=== PATIENT | female | born 1965 | race Caucasian/White ===

== ENCOUNTER → 2017-05-08 | Outpatient (CLI) | payer BC ==
[~2017-05-08] MED LIST: ASCO500T3 PO; CHOL1000 PO; MAGNESIUM PO; MULT-845 PO; TUMERIC PO; TYLOTC500 PO
[2017-05-08 12:39] LABS: HEMATOCRIT 41.3 % (37-47); MEAN CELL VOLUME 95.8 fL (80-100); MEAN CORPUSCULAR HEMOGLOBIN 32.3 pg (25-34); MEAN CORPUSCULAR HGB CONC 33.7 g/dl (32-36); MEAN PLATELET VOLUME 11.2 fL (7.4-10.4); PLATELET COUNT 318 K/uL (130-400); RED BLOOD COUNT 4.31 M/uL (4.2-5.4); WHITE BLOOD COUNT 4.09 K/uL (4.8-10.8)
[2017-05-08 12:47] LABS: URINE APPEARANCE CLOUDY (CLEAR); URINE BILIRUBIN NEG (NEG); URINE COLOR YELLOW; URINE EPITHELIAL CELL AUTO >30 /lpf (0-5); URINE NITRITE NEG (NEG); UROBILINOGEN NEG (NEG); ZZUR CULT IF INDIC CLEAN CATCH YES
[2017-05-08 12:48] LABS: MANUAL MICROSCOPIC REQUIRED? NO; REVIEW REQ? NO
[2017-05-08 12:50] LABS: ALT/SGPT 61 U/L (12-78); AST/SGOT 35 U/L (15-37); BLOOD UREA NITROGEN 17 mg/dl (7-18); BUN/CREATININE RATIO 18.1 (10-20); CALCIUM 9.8 mg/dl (8.5-10.1); CARBON DIOXIDE 27 mmol/L (21-32); CHLORIDE 106 mmol/L (98-107); CREATININE 0.94 mg/dl (0.60-1.20); GLUCOSE 121 mg/dl (70-99); POTASSIUM 4.2 mmol/L (3.5-5.1); SODIUM 139 mmol/L (136-145); TRIGLYCERIDES 113 mg/dl (0-150); VERY LOW DENSITY LIPOPROT CALC 23 mg/dl
[2017-05-08 12:53] LABS: ALKALINE PHOSPHATASE 60 U/L (45-117); CHOLESTEROL 219 mg/dl (0-200); CHOLESTEROL/HDL RATIO 3.4; HDL CHOLESTEROL 65 mg/dl; LDL CHOLESTEROL CALCULATED 131 mg/dl
== END | disposition home or self-care (01) ==
LOC: C.LABBFT 08:37
PROVIDERS: ATTEND Nurse Practitioner
DX: R31.29 Other microscopic hematuria (principal); Z11.59 Encounter for screening for other viral diseases; Z13.220 Encounter for screening for lipoid disorders; R73.01 Impaired fasting glucose

== ENCOUNTER → 2017-05-09 | Outpatient (CLI) | payer BC | END | disposition home or self-care (01) | LOC: C.LABBFT 08:18 | PROVIDERS: ATTEND Nurse Practitioner | DX: Z11.59 Encounter for screening for other viral diseases (principal); R31.29 Other microscopic hematuria; R73.01 Impaired fasting glucose; Z13.220 Encounter for screening for lipoid disorders; N30.20 Other chronic cystitis without hematuria ==

== ENCOUNTER → 2017-07-23 | Outpatient (CLI) | payer BC ==
--- NOTE | 2017-07-24 07:56 | MAMMOGRAPHY REPORT ---
BILATERAL DIGITAL SCREENING MAMMOGRAM TOMOSYNTHESIS WITH CAD: 07/23/2017 CLINICAL HISTORY: Routine screening. Patient has no complaints. TECHNIQUE: Breast tomosynthesis in addition to standard 2D mammography was performed. Current study was also evaluated with a Computer Aided Detection (CAD) system. COMPARISON: Comparison is made to exams dated: 07/17/2016 mammogram, 07/12/2015 mammogram, 06/10/2013 m ammogram - [facility], 06/06/2009, and 12/08/2009 mammogram - [facility] enter. BREAST COMPOSITION: There are scattered areas of fibroglandular density in both breasts. FINDINGS: No new suspicious mass, architectural distortion or cluster of microcalcifications is seen . IMPRESSION: ACR BI-RADS CATEGORY 1: NEGATIVE There is no mammographic evidence of malignancy. A 1 year screening mammogram is recommended. The pa tient will receive written notification of the results. Approximately 10% of breast cancers are not detected with mammography. A negative mammographic report should not delay biopsy if a clinically suggestive mass is present. Aracelis Elkins M.D. ay/:07/23/2017 21:45:57 Quarter Section Ironer: Guera CHAVEZ(R)(M), [facility] letter sent: Normal 1/2 BI-RADS Code: ACR BI-RADS Category 1: Negative
== END | disposition home or self-care (01) ==
LOC: C.MAMM 08:17
PROVIDERS: ATTEND Obstetrics & Gynecology
DX: Z12.31 Encounter for screening mammogram for malignant neoplasm of breast (principal)

== ENCOUNTER → 2018-03-19 | Outpatient (CLI) | payer BC ==
--- NOTE | 2018-03-19 09:19 | DIAGNOSTIC IMAGING REPORT ---
ABDOMEN FOR HERNIA HISTORY: 53 years-old Female K42.9 Umbilical hernia without obstruction and without gangreneP periumbilical hernia, chronic now with acute pain COMPARISON: None available TECHNIQUE: Multiple real-time sonographic images of the periumbilical soft tissues were obtained assessing grayscale appearance and color flow FINDINGS: Fat filled periumbilical hernia is noted measuring 11.1 x 7.1 cm. The fat within the hernia appears mildly echogenic and is nonreducible. Promotional Advertising Assistant reports patient pain and tenderness within this distribution. Nondilated loops of bowel are also seen extending into the hernia sac. IMPRESSION: Nonreducible periumbilical hernia contains mesenteric fat and nondilated loops of bowel. The above report was generated using voice recognition software. It may contain grammatical, syntax or spelling errors. Electronically signed by: Timmy Hampton M.D. 03/19/2018 9:18 AM Dictated Date/Time: 03/19/2018 9:14 AM
== END | disposition home or self-care (01) ==
LOC: C.ULTR 08:27
PROVIDERS: ATTEND Nurse Practitioner
DX: K42.9 Umbilical hernia without obstruction or gangrene (principal)

== ENCOUNTER 2018-06-05 08:27 | Emergency (ER) | payer BC ==
[~2018-06-05] VITALS: Ht 157.5 cm; Wt 109.1 kg
[~2018-06-05 08:27] MED LIST changes: +CPR500 PEG; +CRAN1CAP PO; +GLUCTAB18 PO; +LORATAB PO; -MAGNESIUM PO; +METF500T5 PO; +METR-163 PO; -MULT-845 PO; -TUMERIC PO
[2018-06-05 08:29] VITALS: TEMP 36.7; Ht 157.5 cm; Wt 109.1 kg
[2018-06-05] MEDS ORDERED: ASCO10003 PO (09:20)
--- NOTE | 2018-06-05 09:54 | DIAGNOSTIC IMAGING REPORT ---
R KNEE 3 VIEWS CLINICAL HISTORY: 53 years-old Female presenting with R knee pain. TECHNIQUE: Frontal, crosstable lateral, and sunrise views of the right knee were obtained. COMPARISON: None. FINDINGS: Knee joint congruent though there is severe medial joint space loss with a [id number] appearance. Subchondral sclerosis and cystic change suspected in the medial femoral condyle. Exuberant tricompartmental osteophytosis. No acute fracture or malalignment. Moderate knee joint effusion. No patellar subluxation. IMPRESSION: 1. Advanced tricompartmental degenerative changes most severe in the medial compartment with [id number] medial compartment joint space loss. 2. Moderate knee joint effusion. Electronically signed by: Ajit Leigh M.D. 06/05/2018 9:53 AM Dictated Date/Time: 06/05/2018 9:52 AM
[2018-06-05 10:14] VITALS: BP 148/97; PULSE 105; O2SAT 93
[2018-06-05] MEDS ORDERED: KETO10TA PO (10:22)
--- NOTE | 2018-06-05 15:38 | EMERGENCY ROOM VISIT NOTE ---
ED Visit Note First contact with patient: 08:45 Chief Complaint: Right knee pain. History of Present Illness: Ms. Victoria is a 53-year-old white female who ambulates into the ED complaining of diffuse right knee pain with prominence over the medial aspect of the knee. Patient reports there was no precipitating trauma and on Saturday afternoon, 2 days ago, she was getting up from the sitting position and started having increasing pain. Since that time her pain has been constant and gradually increasing in intensity. She describes her pain as a sharp sensation. She rates her discomfort 6/10. Her pain is nonradiating. Her pain worsens with flexion and extension of the knee, ambulation and positional changes. She reports she is pain-free when she is lying supine and still. She has not taken any medications for pain prior to arrival at the hospital. She denies any associated fevers, chills, sweats, skin redness, recent direct or repetitive trauma, previous significant injuries or surgeries, back pain, hip pain, ankle pain, foot pain, leg weakness/numbness/tingling, cramping, claudication, previous clots. Review of Systems: As noted above in history of present illness. 8 body systems were reviewed and found to be negative as noted above. Past Medical History: Type 2 diabetes, pyelonephritis, status post unspecified hernia surgery. Current Medications: Medications Dose Route/Sig Max Daily Dose Days Date Category Dose Instructions Vitamin C (Ascorbic Acid) 1,000 Mg Tab 1,000 Mg PO DAILY 06/05/18 Reported Cranberry Concentrate Tri 31577-617 mg (Cranberry-Vitamin C) 1 Cap Cap 2 Cap PO BID 05/18/18 Reported Glucophage Er (Metformin HCl) 500 Mg Tab 1,000 Mg PO DAILY 05/18/18 Reported TWO 500 MG TABLETS DAILY Tylenol (Acetaminophen) 500 Mg Tab 1 Dose PO UD PRN 05/18/18 Reported Osteo Bi-Flex Regular Str (Glucosamine-Chondroitin) 1 Tab Tab 1 Tab PO QAM 04/08/18 Reported Vitamin D3 (Cholecalciferol) 1,000 Unit Tab 1 Tab PO QAM 90 12/19/15 Reported Allergies to Medications: Penicillin. Social History: Patient is currently employed; she feels safe in her home environment; she denies current tobacco use and alcohol use per Physical Examination: Vital Signs: Date Time Temp Pulse Resp B/P (MAP) Pulse Ox O2 Delivery O2 Flow Rate FiO2 06/05/18 10:14 105 16 148/97 93 Room Air 06/05/18 08:29 36.7 119 20 145/90 96 Room Air GENERAL: 53-year-old female in mild distress due to pain, nontoxic-appearing, afebrile and hemodynamically stable. NEUROLOGICAL: Awake, alert and oriented to person, place and time. Answering questions appropriately and following commands. Good hand eye coordination. No focal motor or sensory deficits. SKIN: Warm, dry and pink. No soft tissue eruptions or trauma noted. RIGHT LOWER EXTREMITY: No gross bony deformity. No shortening or malrotation. No tenderness in the hip, thigh,, lower leg, ankle or foot. Moderate tenderness over the medial joint line. Moderate swelling over the anterior knee without erythema, warmth or appearance of cellulitis. Because of her body habitus and the size it is tough to examine her knee but I do not appreciate any ligamentous laxity of the collateral or cruciate ligaments. I was not able to assess the meniscus. Because of her moderate swelling her patellar apprehension testing and ballottement testing is questionable. There is no tenderness over the quadriceps tendon. No tenderness, bulging, swelling in the posterior knee. Over the lower legs skin was warm and pink and capillary refill was brisk. No palpable cords. Distal pulses and sensation was intact and equal bilaterally. ED Course: Patient is assessed as noted above. Patient's medication list was reviewed. Patient was offered pain medication and refused. Right Knee X-Rays: Was read by myself and the radiologist showing advanced tricompartmental degenerative changes most severe over the medial compartment with [id number] and joint space loss. Moderate joint effusion. Patient was placed in a Chaparro bandage and educated on walker ambulation. Patient was educated about today's findings and instructed on her treatment plan ; she verbalized understanding and agreement with this plan. Clinical Impression: Right knee pain. Advanced tricompartmental degenerative changes. Moderate joint effusion. Decision-Making: Initially my differential diagnosis I considered degenerative changes, joint effusion, ligamentous strain, muscle strain, tendinitis, and other causes. Disposition: Patient discharged home in stable condition accompanied by her sister and mother; prior to departure she was reassessed and subjectively reported she was having worsening pain and rated her discomfort 8/10. Plan: Comfort measures including rest, ice, Chaparro, walker use and a prescription for Toradol were discussed with the patient. Patient was signed off of work for 3 days. Patient was encouraged to follow-up with orthopedics for definitive care and treatment. Patient was encouraged return the ED for worsening/uncontrolled pain, uncontrolled swelling, leg weakness/numbness/tingling or any new/concerning symptoms.
== END 2018-06-05 10:35 | disposition home or self-care (01) ==
LOC: C.EDB 08:28 → C.EDA 10:35
DX: M25.561 Pain in right knee (principal); E11.9 Type 2 diabetes mellitus without complications; Z79.84 Long term (current) use of oral hypoglycemic drugs; Z88.0 Allergy status to penicillin

== ENCOUNTER 2020-10-12 13:02 | Inpatient (IN) ==
--- NOTE | 2020-10-12 13:37 | Emergency Department Note ---
History of Present Illness General Chief Complaint: Shortness of Breath/Dyspnea Stated Complaint: SOB, LOW OXYGEN LEVELS Time Seen by Provider: 10/12/20 13:13 Source: patient Mode of arrival: ambulatory Limitations: no limitations History of Present Illness Provider Complaint: shortness of breath Onset (ago): day(s) (4) Severity: similar to previous episodes Consistency/Duration: + constant Maximum Pain Intensity: 5 Current Pain Intensity: 5 Relieved By: + nothing Exacerbated By: + exertion, + movement and + coughing Context: + recent illness Associated symptoms: + fever and + cough Treatment prior to arrival: other (Acetaminophen) HPI Narrative: This 55-year-old female patient presents to the emergency department today for evaluation of shortness of breath and hypoxia. Patient reports fever, cough, headache, and body aches since Saturday. She states she developed worsening shortness of breath this morning, prompting her to go to [facility] [employer] for evaluation of her symptoms. The patient states the fever seemed to resolve by Saturday. She has been taking acetaminophen for her body aches with some improvement. Urgent care referred her to the emergency department due to hypoxia. She did have a negative rapid Covid test completed at that time, but had O2 saturation of 90% on room air at that time. Patient denies any cough or hemoptysis. She denies any severe shortness of breath. Related Data Home oxygen amount: none Home Medications Medication Instructions Recorded Confirmed Type lisinopril 5 mg tablet 5 mg PO DAILY #90 tab 12/07/19 10/12/20 Rx atorvastatin 10 mg tablet 10 mg PO DAILY #90 tab 04/07/20 10/12/20 Rx metformin 500 mg tablet,extended 500 mg PO BID #60 tab 05/03/20 10/12/20 Rx release 24hr blood sugar diagnostic #200 ea 06/02/20 Rx aspirin [Aspirin Low Dose] 81 mg PO DAILY 10/12/20 10/12/20 History Allergies Allergy/AdvReac Type Severity Reaction Status Date / Time Penicillins Allergy Unknown RASH Verified 04/07/20 14:33 Past Med/Surg History Medical History Abdominal abscess Pyelonephritis Seroma after procedure Surgical History (Updated 02/18/20 @ 15:20 by Elaine Peterson) History of History of tubal ligation History of ventral hernia repair Hx of colonoscopy Family History (Updated 02/18/20 @ 15:21 by Elaine Peterson) Grandmother (Maternal) Diabetes Father Cancer Denies family history of Ovarian cancer Prostate cancer Myocardial infarction Breast cancer Colorectal cancer Social History Smoking Status: Former smoker Tobacco Type: Cigarettes Hx Alcohol Use: No Hx Substance Use: No marital status: Current Living Situation: Spouse current occupational status: employed Feels Safe at Home: Yes Review of Systems A total of 10 systems reviewed and were otherwise negative Physical Exam Vital Signs: Vital Signs - 24 hr 10/12/20 13:09 10/12/20 13:59 10/12/20 14:00 Temperature 37.0 C Temperature Source Skin Pulse Rate 92 H Pulse Rate [Right Finger] Pulse Rate from Sp O2 Sensor 87 90 Pulse Rhythm Respiratory Rate 20 Respiratory Effort / Characteristics Respiratory Depth Normal Respiratory Patter n Blood Pressure 130/83 Blood Pressure [Ri ght Arm] Blood Pressure Sofya n 98 Blood Pressure Sofya n [Right Arm] Pulse Oximetry 91 94 94 Oxygen Delivery Me thod Room Air Oxygen Flow Rate 2 2 Sepsis Recent Feve r Within 48 Hours No Sepsis New/Unexpla ined Change in Men shelea Status N/A Sepsis Action Take n by Nursing No Action Required Oxygen Flow Rate - Titration Pulse Oximetry Pos t Tiitration 10/12/20 14:15 10/12/20 14:25 10/12/20 14:30 Temperature Temperature Source Pulse Rate Pulse Rate [Right Finger] Pulse Rate from Sp O2 Sensor 88 90 Pulse Rhythm Regular Respiratory Rate Respiratory Effort / Characteristics Non-Labored SOB on Exertion Respiratory Depth Normal Respiratory Patter n Regular Blood Pressure Blood Pressure [Ri ght Arm] Blood Pressure Sofya n Blood Pressure Sofya n [Right Arm] Pulse Oximetry 93 87 L 91 Oxygen Delivery Me thod Room Air Room Air Oxygen Flow Rate 2 2 Sepsis Recent Feve r Within 48 Hours Sepsis New/Unexpla ined Change in Men sheela Status Sepsis Action Take n by Nursing Oxygen Flow Rate - Titration 3 Pulse Oximetry Pos t Tiitration 95 10/12/20 14:45 10/12/20 15:00 10/12/20 15:50 Temperature Temperature Source Pulse Rate Pulse Rate [Right Finger] 83 Pulse Rate from Sp O2 Sensor 84 87 Pulse Rhythm Respiratory Rate 19 Respiratory Effort / Characteristics Respiratory Depth Respiratory Patter n Blood Pressure Blood Pressure [Ri ght Arm] 146/79 H Blood Pressure Sofya n Blood Pressure Sofya n [Right Arm] 101 Pulse Oximetry 92 93 96 Oxygen Delivery Me thod Room Air Oxygen Flow Rate 2 2 Sepsis Recent Feve r Within 48 Hours Sepsis New/Unexpla ined Change in Men sheela Status Sepsis Action Take n by Nursing Oxygen Flow Rate - Titration Pulse Oximetry Pos t Tiitration Physical Exam: VITALS: Blood Pressure 130/83, P 92, R 20, T 37.0C, O2 sat 89% on RA GENERAL: Well appearing, in no acute distress. Non-diaphoretic, well-developed, well-nourished. SKIN: No rashes, erythema, edema, or bruising. Good cap refill. HEAD: Normocephalic atraumatic. EYES: Conjunctivae without injection, sclerae without icterus. NECK: Supple without nuchal rigidity. No lymphadenopathy. LUNGS: Pt. able to speak in full sentences without difficulty. No apparent distress. No retractions or accessory muscle use. MUSCULOSKELETAL: Full range of motion without joint tenderness in all extremities. Normal gait. NEURO: Patient was alert and oriented to person place and time. No focal neurological deficits. Course Course The patient was seen and evaluated as above. Pt. placed on 2 L O2 via NC. An order was placed for continuous cardiac monitoring. The monitor shows a normal sinus rhythm at a rate of 92 bpm. IV access obtained, labs drawn. Pt. medicated with IV fluids. Imaging performed and reviewed by myself and radiologist as noted. Labs reviewed by myself. I discussed the case with [facility] Hospitalist service. They did agree to see and evaluate the patient for admission. Administered Medications Discontinued Medications Dexamethasone (Dexamethasone Sod Inj 10 Mg/Ml Vial) 6 mg IV NOW ONE Stop: 10/12/20 14:40 Last Admin: 10/12/20 15:49 Dose: 6 mg Documented by: [id number] Sodium Chloride (Nss 1000ml) 1,000 mls @ 999 mls/hr IV .Q1H1M ONE Stop: 10/12/20 14:55 Last Infusion: 10/12/20 15:33 Dose: 0 mls/hr Documented by: [id number] Admin: 10/12/20 14:37 Dose: 999 mls/hr Documented by: [id number] Medical Decision Making Differential Diagnosis + acute exacerbation of chronic obstructive airways disease, + community acquired pneumonia, + asthma with exacerbation, + pulmonary embolism, + COPD, + bronchitis, + pneumothorax, + pneumonia, + pleural effusion, + CHF, + ACS and + aspiration In addition to the above, Covid-19 was considered. Medical Records Attestation: I reviewed the patient's medical records. Home Medications Current Medication List: was personally reviewed by me Laboratory Data Attestation: I reviewed the patient's lab results. No leukocytosis, thrombocytopenia. WBC 3.27. There is a mild anemia with a hemoglobin of 11.3 and hematocrit of 33.6. Renal, hepatic function, and electrolytes without significant abnormality. Troponin negative. BNP 438. COVID-19 testing positive. Result diagrams: 10/12/20 14:17 10/12/20 14:17 Lab Results 10/12/20 10/12/20 10/12/20 Range/Units 14:17 14:17 14:17 WBC 3.27 L (4.8-10.8) K/uL RBC 3.56 L (4.2-5.4) M/uL Hgb 11.3 L (12.0-16.0) g/dL Hct 33.6 L (37-47) % MCV 94.4 (80-100) fL MCH 31.7 (25-34) pg MCHC 33.6 (32-36) g/dL RDW Std Deviation 43.6 (36.4-46.3) fL RDW Coeff of Ramone 12.6 (11.5-14.5) % Plt Count 235 (130-400) K/uL MPV 10.1 (7.4-10.4) fL Immature Gran % (Auto) 0.3 % Neut % (Auto) 70.0 % Lymph % (Auto) 20.2 % [place] % (Auto) 9.2 % Eos % (Auto) 0.0 % Baso % (Auto) 0.3 % Neut # (Auto) 2.29 (1.4-6.5) K/uL Lymph # (Auto) 0.66 L (1.2-3.4) K/uL [place] # (Auto) 0.30 (0.11-0.59) K/uL Eos # (Auto) 0.00 (0-0.5) K/uL Baso # (Auto) 0.01 (0-0.2) K/uL Immature Gran # (Auto) 0.01 (0.00-0.02) K/uL PT 10.7 (9.0-12.0) Seconds INR 1.0 (0.9-1.1) APTT 31.4 H (21.0-31.0) Seconds PTT Ratio 1.1 Sodium 133 L (136-145) mmol/L Potassium 4.1 (3.5-5.1) mmol/L Chloride 99 (98-107) mmol/L Carbon Dioxide 29 (21-32) mmol/L Anion Gap 5.0 (3-11) BUN 10 (7-18) mg/dl Creatinine 0.83 (0.6-1.2) mg/dl Est Cr Clr Drug Dosing 85.6 ml/min Est GFR ( Amer) 90.7 Est GFR (Non-Af Amer) 78.3 BUN/Creatinine Ratio 11.5 (10-20) Glucose 101 H (70-99) mg/dl Calcium 8.6 (8.5-10.1) mg/dl Magnesium 2.1 (1.8-2.4) mg/dl Total Bilirubin 0.4 (0.2-1) mg/dl AST 29 (15-37) U/L ALT 28 (12-78) U/L Alkaline Phosphatase 52 (45-117) U/L Troponin I < 0.015 (0-0.045) ng/ml NT-Pro-B Natriuret Pep 438 (0-900) pg/ml Total Protein 7.8 (6.4-8.2) gm/dl Albumin 3.3 L (3.4-5.0) gm/dl Globulin 4.5 H (2.5-4.0) gm/dl Albumin/Globulin Ratio 0.7 L (0.9-2) COVID-19 Eval Order SARS-CoV-2, RNA, NAAT (NEGATIVE) 10/12/20 10/12/20 Range/Units 14:30 14:30 WBC (4.8-10.8) K/uL RBC (4.2-5.4) M/uL Hgb (12.0-16.0) g/dL Hct (37-47) % MCV (80-100) fL MCH (25-34) pg MCHC (32-36) g/dL RDW Std Deviation (36.4-46.3) fL RDW Coeff of Ramone (11.5-14.5) % Plt Count (130-400) K/uL MPV (7.4-10.4) fL Immature Gran % (Auto) % Neut % (Auto) % Lymph % (Auto) % [place] % (Auto) % Eos % (Auto) % Baso % (Auto) % Neut # (Auto) (1.4-6.5) K/uL Lymph # (Auto) (1.2-3.4) K/uL [place] # (Auto) (0.11-0.59) K/uL Eos # (Auto) (0-0.5) K/uL Baso # (Auto) (0-0.2) K/uL Immature Gran # (Auto) (0.00-0.02) K/uL PT (9.0-12.0) Seconds INR (0.9-1.1) APTT (21.0-31.0) Seconds PTT Ratio Sodium (136-145) mmol/L Potassium (3.5-5.1) mmol/L Chloride (98-107) mmol/L Carbon Dioxide (21-32) mmol/L Anion Gap (3-11) BUN (7-18) mg/dl Creatinine (0.6-1.2) mg/dl Est Cr Clr Drug Dosing ml/min Est GFR ( Amer) Est GFR (Non-Af Amer) BUN/Creatinine Ratio (10-20) Glucose (70-99) mg/dl Calcium (8.5-10.1) mg/dl Magnesium (1.8-2.4) mg/dl Total Bilirubin (0.2-1) mg/dl AST (15-37) U/L ALT (12-78) U/L Alkaline Phosphatase (45-117) U/L Troponin I (0-0.045) ng/ml NT-Pro-B Natriuret Pep (0-900) pg/ml Total Protein (6.4-8.2) gm/dl Albumin (3.4-5.0) gm/dl Globulin (2.5-4.0) gm/dl Albumin/Globulin Ratio (0.9-2) COVID-19 Eval Order Covid19 IDNow [facility] SARS-CoV-2, RNA, NAAT POSITIVE A* (NEGATIVE) Imaging Data My Impression: SINGLE VIEW CHEST CLINICAL HISTORY: Dyspnea. FINDINGS: An AP, portable, upright chest radiograph is compared to study dated 05/18/2018. The cardiomediastinal silhouette is unremarkable. Patchy airspace consolidation is seen in the mid to lower lung bilaterally. No large pleural effusion or pneumothorax is identified. The skeletal structures are osteopenic. The bony thorax is grossly intact. IMPRESSION: Multifocal patchy airspace consolidation is typical for pneumonia. Clinical correlation will be required and radiographic follow-up to resolution is recommended. ACT 112: Negative or not required by law. Electronically signed by: Daren Marroquin M.D. 10/12/2020 2:20 PM ECG Data Attestation: I personally reviewed and interpreted this ECG as follows: Interpretation: Normal sinus rhythm with a ventricular rate of [address] elevation or depression. No T-wave inversion. Normal axis. Blood Pressure Blood Pressure Findings: Elevated blood pressure Blood Pressure Disposition: elevated BP felt to be situational MDM Narrative This 55-year-old female patient presents to the emergency department today for fever, cough, shortness of breath, headache, and body aches. Given her symptoms, I was highly suspicious for COVID-19 as the etiology. The patient is afebrile while here in the department, but is hypoxic with an O2 saturation of 88/89% on room air. She did respond nicely to a small amount of oxygen given via nasal cannula while here in the department. Laboratory evaluation and chest x-ray consistent with COVID-19. EKG without ischemic changes. Troponin negative. Patient was medicated with IV fluids and Decadron. She will be admitted to the hospitalist service for ongoing management of her symptoms. Please see hospitalist dictation regarding ongoing management care of this patient. The chart was completed utilizing [employer] voice recognition software. Grammatical errors, random word insertions, pronoun errors, and incomplete sente nces are an occasional consequence of this system due to software limitations, ambient noise, and hardware issues. Any formal questions or concerns about the content, text, or information contained within the body of this dictation should be directly addressed to the provider for clarification. Impression & Plan COVID-19, Hypoxia Discharge Plan Visit Data Chief Complaint: Shortness of Breath/Dyspnea Stated Complaint: SOB, LOW OXYGEN LEVELS ED Provider: Grant Bello ED Midlevel Provider: Erin Diamond Discharge Problem: COVID-19, Hypoxia Patient Disposition: Admitted As Inpatient Forms Stand Alone Forms: My [facility] Prescriptions Prescriptions: No Action lisinopril 5 mg tablet 5 mg PO DAILY Qty: 90 RF: 3 metformin 500 mg tablet extended release 24hr 500 mg PO BID Qty: 60 RF: 11 (DME) blood sugar diagnostic [[employer] Verio test strips] Strip See Rx Instructions .ROUTE .MEDSUPPLY Qty: 200 RF: 3 atorvastatin 10 mg tablet 10 mg PO DAILY Qty: 90 RF: 3 aspirin [Aspirin Low Dose] 81 mg Tablet,Delayed Release (Dr/Ec) 81 mg PO DAILY RF: 0 Referrals Referrals: Davina Shipley CRNP [Primary Care Provider] -
[2020-10-12] MEDS ORDERED: SODIUM CHLORIDE 0.9% 1000ML 1,000 ML IV ONE (13:55)
--- NOTE | 2020-10-12 14:22 | XRay Report ---
SINGLE VIEW CHEST CLINICAL HISTORY: Dyspnea. FINDINGS: An AP, portable, upright chest radiograph is compared to study dated 05/18/2018. The cardiom ediastinal silhouette is unremarkable. Patchy airspace consolidation is seen in the mid to lower lung bilaterally. No large pleural effusion or pneumothorax is identified. The skeletal structures are os teopenic. The bony thorax is grossly intact. IMPRESSION: Multifocal patchy airspace consolidation is typical for pneumonia. Clinical correlation w ill be required and radiographic follow-up to resolution is recommended. ACT 112: Negative or not required by law. Electronically signed by: Daren Marroquin M.D. 10/12/2020 2:20 PM
[2020-10-12 14:33] LABS: Basophils # (auto) 0.01 K/uL (0-0.2); Basophils % (auto) 0.3 %; Hematocrit (blood only) 33.6 % (37-47); Hemoglobin 11.3 g/dL (12.0-16.0); Immature Granulocytes # (auto) 0.01 K/uL (0.00-0.02); Immature Granulocytes % (auto) 0.3 %; Lymphocytes # (auto) 0.66 K/uL (1.2-3.4); Lymphocytes % (auto) 20.2 %; Mean Corpuscular Hemoglobin 31.7 pg (25-34); Mean Corpuscular Hgb Conc 33.6 g/dL (32-36); Mean Corpuscular Volume 94.4 fL (80-100); Mean Platelet Volume 10.1 fL (7.4-10.4); Monocytes % (auto) 9.2 %; Neutrophils # (auto) 2.29 K/uL (1.4-6.5); Platelet Count 235 K/uL (130-400); RDW Coefficient of Variation 12.6 % (11.5-14.5); RDW Standard Deviation 43.6 fL (36.4-46.3); Red Blood Count 3.56 M/uL (4.2-5.4); White Blood Count 3.27 K/uL (4.8-10.8)
[2020-10-12] MEDS ORDERED: DEXAMETHASONE SOD INJ 10 MG/ML VIAL IV ONE (14:39)
[2020-10-12 14:45] LABS: Partial Thromboplastin Ratio 1.1; Partial Thromboplastin Time 31.4 Seconds (21.0-31.0); Prothrombin Time 10.7 Seconds (9.0-12.0)
[2020-10-12 14:55] LABS: Alanine Aminotransferase 28 U/L (12-78); Albumin Level 3.3 gm/dl (3.4-5.0); Aspartate Aminotransferase 29 U/L (15-37); BUN Creatinine Ratio 11.5 (10-20); Blood Urea Nitrogen 10 mg/dl (7-18); Calcium 8.6 mg/dl (8.5-10.1); Carbon Dioxide 29 mmol/L (21-32); Chloride 99 mmol/L (98-107); Creatinine Clr Calc Pharmacy 85.6 ml/min; Est GFR (African American) 90.7; Est GFR (Non-African American) 78.3; Glucose 101 mg/dl (70-99); Magnesium 2.1 mg/dl (1.8-2.4); Potassium 4.1 mmol/L (3.5-5.1); Sodium 133 mmol/L (136-145)
[2020-10-12 15:00] LABS: Albumin Globulin Ratio 0.7 (0.9-2); Alkaline Phosphatase 52 U/L (45-117); Bilirubin,Total 0.4 mg/dl (0.2-1); Globulin 4.5 gm/dl (2.5-4.0); NT Pro B Type Natriuretic Pept 438 pg/ml (0-900); Total Protein 7.8 gm/dl (6.4-8.2); Troponin I < 0.015 ng/ml (0-0.045)
[2020-10-12] MEDS ORDERED: ONDANSETRON INJ 2 MG/ML 2 ML VIAL IV PRN (18:01)
[2020-10-12] MEDS ORDERED: metFORMIN HCL ER 500 MG TABCR PO SCH ×2 (18:30→21:00)
[2020-10-12] MEDS ORDERED: GLUCOSE 10 TABS/TUBE PO PRN (19:17)
[2020-10-12] MEDS ORDERED: GLUCOSE 40% GEL 15 GM TUBE PO PRN (19:17)
[2020-10-12] MEDS ORDERED: DEXTROSE 50% 50 ML SYRINGE IV PRN (19:17)
[2020-10-12] MEDS ORDERED: GLUCAGON FOR INJ 1 MG VIAL SQ PRN (19:17)
[2020-10-12] MEDS ORDERED: CARBOHYDRATES FOR HYPOGLYCEMIA PO PRN (19:17)
--- NOTE | 2020-10-12 19:17 | History & Physical Report ---
Date of Service October 12, 2020 Assessment & Plan (1) COVID-19: First symptoms on 10/09/2020. - Started dexamethasone & remdesivir - Convalescent plasma not shown to be helpful in recent trials. Discussed pros/cons including possible early antibody provision vs. increased risk of thrombosis. After discussion, she agreed to defer. - Supplemental O2 as needed - DuoNebs standing and PRN (2) Hypertension: BP is 145/80 in the ED. - Continue home lisinopril (3) Type 2 diabetes mellitus: A1c was 6.6% in 02/2020. - Sliding scale insulin - Repeat A1c (4) Dyslipidemia: - Continue atorvastatin (5) DVT prophylaxis: Lovenox 40 mg SQ QAM Admission and Anticipated Discharge Date Admission Date: October 12, 2020 History of Present Illness Primary Care Provider: ISABEL Escamilla 55yo F w/ hx of HTN, DM who presents with Covid-19. She works at [employer] and is exposed to the public. She started to feel unwell on Saturday with fevers, co ugh, and shortness of breath. As shortness of breath got worse, she came to seek medical attention. Allergies Allergy/AdvReac Type Severity Reaction Status Date / Time Penicillins Allergy Unknown RASH Verified 04/07/20 14:33 Home Medications Medication Instructions Recorded Confirmed Type lisinopril 5 mg tablet 5 mg PO DAILY #90 tab 12/07/19 10/12/20 Rx atorvastatin 10 mg tablet 10 mg PO DAILY #90 tab 04/07/20 10/12/20 Rx metformin 500 mg tablet,extended 500 mg PO BID #60 tab 05/03/20 10/12/20 Rx release 24hr blood sugar diagnostic #200 ea 06/02/20 Rx aspirin [Aspirin Low Dose] 81 mg PO DAILY 10/12/20 10/12/20 History Past Med/Surg History Medical History Abdominal abscess Pyelonephritis Seroma after procedure Surgical History History of History of tubal ligation History of ventral hernia repair Hx of colonoscopy Family History Grandmother (Maternal) Diabetes Father Cancer Denies family history of Ovarian cancer Prostate cancer Myocardial infarction Breast cancer Colorectal cancer Social History Smoking Status: Former smoker Tobacco Type: Cigarettes Hx Alcohol Use: No Hx Substance Use: No marital status: Current Living Situation: Spouse current occupational status: employed Feels Safe at Home: Yes Review of Systems Review of Systems: All systems reviewed & are unremarkable except as noted in HPI & below Physical Exam Constitutional: WD/WN, vitals as above Eyes: EOM intact bilaterally; no conjunctival abnormality ENMT: external ear and nose normal, oropharynx normal Neck: trachea midline, no thyromegaly normal visual inspection Respiratory: + respiratory distress, + labored breathing and + tachypneic Auscultation: + crackles Cardiovascular: RRR, no murmur, no edema Gastrointestinal (Abdomen): Inspection/Auscultation: abdomen normal to inspection; abdomen not distended Musculoskeletal: no cyanosis or clubbing, extremities motor strength 5/5 Skin: no rashes, warm and dry Neurologic: moves all extremities and awake Psychiatric: Orientation: alert, oriented to person and cooperative Results & Data Results & Data ([facility]) Vital Signs (Past 12 Hours) Vital Signs Temp Pulse Pulse Resp BP BP Pulse Ox 10/12/20 17:15 82 19 94 10/12/20 15:50 83 19 146/79 H 96 10/12/20 15:00 93 10/12/20 14:45 92 10/12/20 14:30 91 10/12/20 14:25 87 L 10/12/20 14:15 93 10/12/20 14:00 94 10/12/20 13:59 94 10/12/20 13:09 37.0 C 92 H 20 130/83 91 PG Care Time/CCT Total # of Minutes Spent Total Time Spent with Patient: Total time spent is greater than 50% in coordination of care (as documented) at patient's floor/unit and/or counseling patient: Coding Level of Care Code 33769 Initial Inpt Care Lvl 3 Diagnoses COVID-19 U07.1 Hypertension I10 Type 2 diabetes mellitus E11.9 Dyslipidemia E78.5 DVT prophylaxis Z29.9
[2020-10-12 19:56] LABS: Appearance Urine Clear (Clear); Bacteria Urine Automated Negative (Negative); Bilirubin Urine Negative (Negative); Blood Urine Negative (Negative); Cast Urine Automated 0 /lpf (0-5); Color Urine Yellow; Glucose Urine UA Negative (Negative); Ketones Urine Negative (Negative); Leukocyte Esterase Urine Trace (Negative); Nitrite Urine Negative (Negative); Protein Urine Negative (Negative); RBC Urine Automated 0-4 /hpf (0-4); Specific Gravity Urine 1.005 (1.000-1.030); Urobilinogen Urine Negative (Negative); pH Urine 5.5 (4.5-7.5)
[2020-10-12] MEDS: BENZONATATE 100 MG CAPSULE PO SCH (20:49)
[2020-10-12] MEDS: guaiFENesin 600 MG TABCR PO SCH (20:50)
[2020-10-12] MEDS: ALBUTEROL HFA 8 GM INHALER INH SCH ×2 (21:01→23:05)
[2020-10-12] MEDS: INSULIN ASPART 100 UNITS/ML 3 ML PEN SC SCH (21:30)
[2020-10-13] MEDS: ALBUTEROL HFA 8 GM INHALER INH SCH ×6 (03:16→23:01)
--- NOTE | 2020-10-13 06:55 | Electrocardiogram Report ---
Test Reason : Blood Pressure : / mmHG Vent. Rate : 085 BPM Atrial Rate : 085 BPM P-R Int : 134 ms QRS Dur : 090 ms QT Int : 362 ms P-R-T Axes : 014 005 041 degrees QTc Int : 430 ms Normal sinus rhythm Normal ECG When compared with ECG of 18-MAY-2018 11:22, No significant change was found Confirmed by Juancho Workman ([id number]) on 10/13/2020 6:55:25 AM Referred By: REFERRED SELF Confirmed By:Juancho Workman
[2020-10-13 08:52] LABS: Hematocrit (blood only) 35.5 % (37-47); Hemoglobin 11.7 g/dL (12.0-16.0); Mean Corpuscular Hemoglobin 31.7 pg (25-34); Mean Corpuscular Volume 96.2 fL (80-100); Mean Platelet Volume 10.2 fL (7.4-10.4); Platelet Count 288 K/uL (130-400); RDW Coefficient of Variation 12.7 % (11.5-14.5); Red Blood Count 3.69 M/uL (4.2-5.4); White Blood Count 3.89 K/uL (4.8-10.8)
[2020-10-13 09:18] LABS: Estimated Average Glucose 169 mg/dl; Hemoglobin A1C 7.5 % (4.5-5.6)
[2020-10-13 09:23] LABS: Calcium 9.3 mg/dl (8.5-10.1); Creatinine Clr Calc Pharmacy 87.2 ml/min; Est GFR (African American) 92.1; Est GFR (Non-African American) 79.4; Potassium 3.7 mmol/L (3.5-5.1)
[2020-10-13 09:26] LABS: Albumin Globulin Ratio 0.6 (0.9-2); Bilirubin,Total 0.3 mg/dl (0.2-1)
[2020-10-13] MEDS: INSULIN ASPART 100 UNITS/ML 3 ML PEN SC SCH ×4 (09:36→20:59)
[2020-10-13] MEDS: dexAMETHasone 4 MG TAB PO SCH (09:37)
[2020-10-13] MEDS: ASPIRIN 81 MG ECTAB PO SCH (09:39)
[2020-10-13] MEDS: ATORVASTATIN 10 MG TAB PO SCH (09:40)
[2020-10-13] MEDS: ENOXAPARIN INJ 40 MG/0.4 ML SYR SQ SCH (09:41)
[2020-10-13] MEDS: guaiFENesin 600 MG TABCR PO SCH ×2 (09:42→20:33)
[2020-10-13] MEDS: lisinopril 5 MG TAB PO SCH (09:43)
[2020-10-13] MEDS: BENZONATATE 100 MG CAPSULE PO SCH ×3 (09:43→20:33)
[2020-10-13] MEDS: ACETAMINOPHEN 325 MG TAB PO PRN (11:17)
--- NOTE | 2020-10-13 17:18 | Hospitalist Progress Note ---
Date of Service October 13, 2020 Assessment & Plan (1) COVID-19: First symptoms on 10/09/2020. - Started dexamethasone & remdesivir - Convalescent plasma not shown to be helpful in recent trials. Discussed pros/cons including possible early antibody provision vs. increased risk of thrombosis. After discussion, she agreed to defer. - Supplemental O2 as needed - DuoNebs standing and PRN - Presently on 3L NC. I was able to get her down to RA, but did have desaturation with exertion down to <87%. Restarted the O2. (2) Hypertension: BP is 130/75 in the ED. - Continue home lisinopril (3) Type 2 diabetes mellitus: A1c was 6.6% in 02/2020; 7.5% on 10/13. - Sliding scale insulin -> Overall 130 - 250. (4) Dyslipidemia: - Continue atorvastatin (5) DVT prophylaxis: Lovenox 40 mg SQ QAM Admission and Anticipated Discharge Date Admission Date: October 12, 2020 Subjective Doing stably today. She feels ok. Reports no fevers/chills, chest pain, shortness of breath, abdominal pain, nausea, or vomiting. Physical Exam Constitutional: WD/WN, vitals as above Eyes: EOM intact bilaterally; no conjunctival abnormality ENMT: external ear and nose normal, oropharynx normal Neck: trachea midline, no thyromegaly normal visual inspection Respiratory: + respiratory distress, + labored breathing and + tachypneic Auscultation: + crackles Cardiovascular: RRR, no murmur, no edema Gastrointestinal (Abdomen): Inspection/Auscultation: abdomen normal to inspection; abdomen not distended Musculoskeletal: no cyanosis or clubbing, extremities motor strength 5/5 Skin: no rashes, warm and dry Neurologic: moves all extremities and awake Psychiatric: Orientation: alert, oriented to person and cooperative Results & Data Results & Data ([facility]) Vital Signs (Past 12 Hours) Vital Signs Temp Pulse Resp BP Pulse Ox 10/13/20 15:53 71 18 92 10/13/20 15:26 36.7 C 68 18 127/76 92 10/13/20 11:07 69 18 93 10/13/20 09:33 70 117/71 10/13/20 07:52 66 18 93 10/13/20 07:19 36.6 C 65 20 121/77 93 PG Care Time/CCT Total # of Minutes Spent Total Time Spent with Patient: Total time spent is greater than 50% in coordination of care (as documented) at patient's floor/unit and/or counseling patient: Coding Level of Care Code 90721 Subseq Hosp Care Lvl 2 Diagnoses COVID-19 U07.1 Hypertension I10 Type 2 diabetes mellitus E11.9 Dyslipidemia E78.5 DVT prophylaxis Z29.9
[2020-10-13] MEDS ORDERED: REMDESIVIR 200 MG in SODIUM CHLORIDE 0.9% 210 ML IV SCH (17:45)
[2020-10-13] MEDS: SODIUM CHLORIDE 0.9% 10ML FLUSH IV SCH (20:31)
[2020-10-14] MEDS: ALBUTEROL HFA 8 GM INHALER INH SCH ×6 (02:01→23:33)
[2020-10-14 07:46] LABS: Hemoglobin 11.4 g/dL (12.0-16.0); Mean Corpuscular Hemoglobin 31.4 pg (25-34); Mean Corpuscular Hgb Conc 32.6 g/dL (32-36); Mean Corpuscular Volume 96.4 fL (80-100); Mean Platelet Volume 10.4 fL (7.4-10.4); Platelet Count 322 K/uL (130-400); RDW Coefficient of Variation 12.6 % (11.5-14.5); RDW Standard Deviation 44.8 fL (36.4-46.3); Red Blood Count 3.63 M/uL (4.2-5.4); White Blood Count 7.88 K/uL (4.8-10.8)
[2020-10-14 08:10] LABS: Albumin Level 2.9 gm/dl (3.4-5.0); BUN Creatinine Ratio 24.6 (10-20); Calcium 9.3 mg/dl (8.5-10.1); Creatinine Clr Calc Pharmacy 83.2 ml/min; Est GFR (African American) 86.9; Magnesium 2.4 mg/dl (1.8-2.4); Potassium 4.1 mmol/L (3.5-5.1)
[2020-10-14 08:13] LABS: Albumin Globulin Ratio 0.6 (0.9-2); Bilirubin,Total 0.3 mg/dl (0.2-1); Globulin 4.7 gm/dl (2.5-4.0); Total Protein 7.6 gm/dl (6.4-8.2)
[2020-10-14] MEDS: dexAMETHasone 4 MG TAB PO SCH (08:54)
[2020-10-14] MEDS: ATORVASTATIN 10 MG TAB PO SCH (08:55)
[2020-10-14] MEDS: ASPIRIN 81 MG ECTAB PO SCH (08:55)
[2020-10-14] MEDS: guaiFENesin 600 MG TABCR PO SCH ×2 (08:56→21:03)
[2020-10-14] MEDS: BENZONATATE 100 MG CAPSULE PO SCH ×3 (08:56→21:03)
[2020-10-14] MEDS: lisinopril 5 MG TAB PO SCH (08:57)
[2020-10-14] MEDS: ENOXAPARIN INJ 40 MG/0.4 ML SYR SQ SCH (08:57)
[2020-10-14] MEDS: INSULIN ASPART 100 UNITS/ML 3 ML PEN SC SCH ×4 (08:59→21:02)
[2020-10-14] MEDS: ACETAMINOPHEN 325 MG TAB PO PRN (09:06)
--- NOTE | 2020-10-14 15:19 | Hospitalist Progress Note ---
Date of Service October 14, 2020 Assessment & Plan (1) COVID-19: First symptoms on 10/09/2020. - Started dexamethasone & remdesivir (End dates are: 10/21/2020 & 10/17/2020 respectively). - Convalescent plasma not shown to be helpful in recent trials. Discussed pros/cons including possible early antibody provision vs. increased risk of thrombosis. After discussion, she decided to defer. - Supplemental O2 as needed - DuoNebs standing and PRN - Presently on 2-3L NC. I was able to get her down to RA at rest, but did have desaturation with exertion down to <87% even with 3L. Restarted the O2. She feels well and wants to go, so if O2 demand stays stable, consider 2-step tomorrow AM and possible discharge. (2) Hypertension: BP is 140/80 in the ED. - Continue home lisinopril (3) Type 2 diabetes mellitus: A1c was 6.6% in 02/2020; 7.5% on 10/13. - Sliding scale insulin -> Overall 130 - 240. (4) Dyslipidemia: - Continue atorvastatin (5) DVT prophylaxis: Lovenox 40 mg SQ QAM Admission and Anticipated Discharge Date Admission Date: October 12, 2020 Subjective Feels quite well. More energy. Improved cough. No shortness of breath. Reports no fevers/chills, chest pain, abdominal pain, nausea, or vomiting. Physical Exam Constitutional: WD/WN, vitals as above Eyes: EOM intact bilaterally; no conjunctival abnormality ENMT: external ear and nose normal, oropharynx normal Neck: trachea midline, no thyromegaly normal visual inspection Respiratory: + tachypneic; no labored breathing Auscultation: + crackles Cardiovascular: RRR, no murmur, no edema Gastrointestinal (Abdomen): Inspection/Auscultation: abdomen normal to inspection; abdomen not distended Musculoskeletal: no cyanosis or clubbing, extremities motor strength 5/5 Skin: no rashes, warm and dry Neurologic: moves all extremities and awake Psychiatric: Orientation: alert, oriented to person and cooperative Results & Data Results & Data ([place]) Vital Signs (Past 12 Hours) Vital Signs Temp Pulse Resp BP Pulse Ox 10/14/20 12:52 36.7 C 73 143/82 H 92 12/18/20 12:03 62 18 94 10/14/20 11:22 94 10/14/20 08:52 126/79 93 10/14/20 08:48 73 18 92 10/14/20 07:35 36.8 C 71 132/81 92 10/14/20 06:00 90 10/14/20 05:58 88 L 10/14/20 05:49 71 90 10/14/20 05:46 67 87 L PG Care Time/CCT Total # of Minutes Spent Total Time Spent with Patient: Total time spent is greater than 50% in coordination of care (as documented) at patient's floor/unit and/or counseling patient: Coding Level of Care Code 77710 Subseq Hosp Care Lvl 2 Diagnoses COVID-19 U07.1 Hypertension I10 Type 2 diabetes mellitus E11.9 Dyslipidemia E78.5 DVT prophylaxis Z29.9
[2020-10-14] MEDS ORDERED: REMDESIVIR 100 MG in SODIUM CHLORIDE 0.9% 230 ML IV SCH (20:00)
[2020-10-14] MEDS: SODIUM CHLORIDE 0.9% 10ML FLUSH IV SCH (21:17)
[2020-10-15] MEDS: ALBUTEROL HFA 8 GM INHALER INH SCH ×4 (02:22→15:19)
[2020-10-15] MEDS: ATORVASTATIN 10 MG TAB PO SCH (08:15)
[2020-10-15] MEDS: ASPIRIN 81 MG ECTAB PO SCH (08:15)
[2020-10-15] MEDS: lisinopril 5 MG TAB PO SCH (08:15)
[2020-10-15] MEDS: BENZONATATE 100 MG CAPSULE PO SCH ×2 (08:15→12:36)
[2020-10-15] MEDS: dexAMETHasone 4 MG TAB PO SCH (08:16)
[2020-10-15] MEDS: guaiFENesin 600 MG TABCR PO SCH (08:16)
[2020-10-15] MEDS: ENOXAPARIN INJ 40 MG/0.4 ML SYR SQ SCH (08:17)
[2020-10-15] MEDS: INSULIN ASPART 100 UNITS/ML 3 ML PEN SC SCH ×2 (08:42→12:35)
--- NOTE | 2020-10-15 14:55 | Discharge Summary ---
Date of Service October 15, 2020 Admission HPI Per Admitting Provider 55yo F w/ hx of HTN, DM who presents with Covid-19. She works at [employer] and is exposed to the public. She started to feel unwell on Saturday with fevers, cough, and shortness of breath. As shortness of breath got worse, she came to seek medical attention. Principal Diagnosis COVID 19 pneumonia Discharge Exam Constitutional WD/WN, vitals as above + obese; no acute distress Neck trachea midline, no thyromegaly Respiratory normal respiratory effort, lungs clear to auscultation Cardiovascular RRR, no murmur, no edema Gastrointestinal (Abdomen) normal bowel sounds, soft, nontender, no hepatosplenomegaly Musculoskeletal no cyanosis or clubbing, extremities motor strength 5/5 Skin no rashes, warm and dry Neurologic patellar DTR's 2+ bilat, sensation intact and PERRL, EOMI, accommodation nl, no face palsy, no dysarthria Psychiatric A+Ox3, euthymic affect Lymphatic no cervical or axillary lymphadenopathy Discharge Data Allergies Allergy/AdvReac Type Severity Reaction Status Date / Time Penicillins Allergy Unknown RASH Verified 04/07/20 14:33 Consultations 10/12/20 14:46 ED Decision to Admit Stat 10/12/20 18:01 Consult Case Management - Discharge Planning Routine Hospital Course (1) COVID-19: First symptoms on 10/09/2020. - Started dexamethasone & remdesivir titrated to room air at rest, discharged to home on 10/15 no need for further remdesivir will continue Dexamethasone 6mg PO daily until 10/21 - Convalescent plasma not shown to be helpful in recent trials. Discussed pros/cons including possible early antibody provision vs. increased risk of thrombosis. After discussion, she decided to defer. 2 step on day of discharge showed that patient needed 3L on exertion, no oxygen at rest home oxygen arranged should slowly wean off oxygen in next 1-2 weeks stay well nourished, well hydrated, get rest complete course of Dexamethasone (2) Hypertension: BP is stable - Continue home lisinopril (3) Type 2 diabetes mellitus: A1c was 6.6% in 02/2020; 7.5% on 10/13. - Sliding scale insulin -> Overall 130 - 240. utilized NPH insulin, will send home on NPH 20 units in the morning at the same time as dexamethasone, this will blunt the hyperglycemia told to monitor blood sugars, if she has hypoglycemia in the late morning/afternoon then she can stop the NPH (4) Dyslipidemia: - Continue atorvastatin (5) DVT prophylaxis: Lovenox 40 mg SQ QAM (6) Hypoxia: acute hypoxemic respiratory failure due to COVID 19 pneumonia improved over several days, down to room air at rest, requires 3L on exertion home oxygen arranged expect to wean off oxygen completely in 1-2 weeks Total Time Total Time Spent Total Time Spent (In Minutes): 32 minutes Total Time Includes: Examination of the Patient, Discharge Planning and Medication Reconciliation Discharge Plan Discharge Items Patient Disposition: Home - Self-Care Reason For Visit: COVID 19 RESPIRATORY INFECTION, SHORTNESS OF Discharge Diagnosis: COVID 19 pneumonia Acute hypoxic respiratory failure Condition on Discharge: Good Goals: stay well nourished, well hydrated, get rest slowly wean off oxygen Activity: Resume your previous activity Non-emergency contact: Primary Care Provider Call non-emergency contact if: you have any medication questions, your symptoms worsen and you have a fever Follow-up/Referrals: Davina Shipley CRNP [Primary Care Provider] - 10/20/20 9:30 am ([facility].) Diet: Carb Consistent or DM2 Addtl Attending Provider Instructions: Medications: - DEXAMETHASONE: 6mg daily for six more days, last dose would be 10/21 in the morning - INSULIN NPH: take 20 units at the same time as dexamethasone, will blunt the hyperglycemic effects, take only 6 days, last dose 10/21 COVID 19 pneumonia, acute hypoxic respiratory failure responding well to treatment with dexamethasone and Remdesivir will send home on 6 more days of dexamethasone to complete 10 days total no need for further Remdesivir use 3L of oxygen on exertion, no oxygen needed at rest you should feel better over the next week, likely can stop oxygen in 1-2 weeks Diabetes: as above, utilize NPH insulin the next 6 days resume your Metformin you should follow a low carbohydrate diet if you feel sweaty, weak, light headed I would check your sugars if you experience any low sugars during the day, then stop the NPH insulin Pending Studies at Discharge: No Stand-Alone Forms: My [employer], Smoking Cessation Medications and DC Order Prescriptions: New dexamethasone 2 mg tablet 6 mg PO DAILY 6 Days Qty: 18 RF: 0 Humulin N NPH Insulin KwikPen 100 unit/mL (3 mL) insulin pen 20 unit subcut DAILY Qty: 3 RF: 0 Continued lisinopril 5 mg tablet 5 mg PO DAILY Qty: 90 RF: 3 metformin 500 mg tablet extended release 24hr 500 mg PO BID Qty: 60 RF: 11 (DME) blood sugar diagnostic [OneTouch Verio test strips] Strip See Rx Instructions .ROUTE .MEDSUPPLY Qty: 200 RF: 3 atorvastatin 10 mg tablet 10 mg PO DAILY Qty: 90 RF: 3 aspirin [Aspirin Low Dose] 81 mg Tablet,Delayed Release (Dr/Ec) 81 mg PO DAILY RF: 0 No Action (DME) pen needle, diabetic [Comfort EZ Pen [place]] 31 gauge x 5/16" needle See Rx Instructions .ROUTE .MEDSUPPLY Qty: 1200 RF: 2 Discharge Orders: Discharge Order (Routine); Ordered 10/15/20 Ordered By: Terry Gandhi/Other Patient Handouts: High Blood Sugar (Hyperglycemia), Managing Type 2 Diabetes Admission Data Admit Date/Time: 10/12/20 15:36 Attending Provider: Terry Rodgers Admit Provider: Leonidas Hanson Primary Care Provider: Davina Shipley Other Interventions: Discharge Summary Assessment (RN) Last Done: 10/15/20 14:59 Coding Level of Care Code D/C Day Management >30 mins Diagnoses COVID-19 U07.1 Hypertension I10 Type 2 diabetes mellitus E11.9 Dyslipidemia E78.5 DVT prophylaxis Z29.9 Hypoxia R09.02
== END 2020-10-15 16:41 | disposition home or self-care (01) | DRG 177 ==
LOC: ED 13:02 → SUATTDRO 15:36 → 3E 15:36
DX: Z68.41 Body mass index [BMI] 40.0-44.9, adult; U07.1 COVID-19; E66.01 Morbid (severe) obesity due to excess calories; Z87.891 Personal history of nicotine dependence; Z79.899 Other long term (current) drug therapy; Z88.0 Allergy status to penicillin; J96.01 Acute respiratory failure with hypoxia; Z79.82 Long term (current) use of aspirin; E11.9 Type 2 diabetes mellitus without complications; I10 Essential (primary) hypertension; J12.89 Other viral pneumonia; E78.5 Hyperlipidemia, unspecified; Z79.84 Long term (current) use of oral hypoglycemic drugs

== ENCOUNTER 2021-09-10 04:11 | Observation (INO) ==
[2021-09-10] MEDS ORDERED: SODIUM CHLORIDE 0.9% 1000ML 1,000 ML IV STA (04:40)
[2021-09-10] MEDS ORDERED: HYDROmorphone INJ 0.5 MG/0.5 ML SYR IV STA ×2 (04:40→05:16)
[2021-09-10] MEDS ORDERED: ONDANSETRON INJ 2 MG/ML 2 ML VIAL IV STA (04:40)
[2021-09-10 04:57] LABS: Basophils # (auto) 0.01 K/uL (0-0.2); Basophils % (auto) 0.2 %; Eosinophils # (auto) 0.02 K/uL (0-0.5); Eosinophils % (auto) 0.3 %; Hematocrit (blood only) 37.8 % (37-47); Hemoglobin 12.8 g/dL (12.0-16.0); Immature Granulocytes # (auto) 0.01 K/uL (0.00-0.02); Immature Granulocytes % (auto) 0.2 %; Lymphocytes # (auto) 1.18 K/uL (1.2-3.4); Lymphocytes % (auto) 18.1 %; Mean Corpuscular Hemoglobin 32.6 pg (25-34); Mean Corpuscular Hgb Conc 33.9 g/dL (32-36); Mean Corpuscular Volume 96.2 fL (80-100); Mean Platelet Volume 10.6 fL (7.4-10.4); Monocytes # (auto) 0.53 K/uL (0.11-0.59); Monocytes % (auto) 8.1 %; Neutrophils # (auto) 4.76 K/uL (1.4-6.5); Neutrophils % (auto) 73.1 %; Platelet Count 320 K/uL (130-400); RDW Coefficient of Variation 12.5 % (11.5-14.5); Red Blood Count 3.93 M/uL (4.2-5.4); White Blood Count 6.51 K/uL (4.8-10.8)
[2021-09-10 05:15] LABS: Alanine Aminotransferase 21 U/L (12-78); Albumin Level 3.6 gm/dl (3.4-5.0); Aspartate Aminotransferase 13 U/L (15-37); Blood Urea Nitrogen 16 mg/dl (7-18); Calcium 9.3 mg/dl (8.5-10.1); Carbon Dioxide 26 mmol/L (21-32); Chloride 103 mmol/L (98-107); Creatinine Clr Calc Pharmacy 76.5 ml/min; Est GFR (African American) 78.5 ml/min; Est GFR (Non-African American) 67.7 ml/min; Glucose 166 mg/dl (70-99); Lipase 114 U/L (73-393); Sodium 134 mmol/L (136-145)
[2021-09-10 05:20] LABS: Albumin Globulin Ratio 0.9 (0.9-2); Alkaline Phosphatase 62 U/L (45-117); Bilirubin,Total 0.7 mg/dl (0.2-1); Globulin 3.9 gm/dl (2.5-4.0); Total Protein 7.5 gm/dl (6.4-8.2); Troponin I < 0.015 ng/ml (0-0.045)
[2021-09-10] MEDS ORDERED: CLINDAMYCIN 600 MG/54 ML BAG IV SCH (06:00)
[2021-09-10 06:55] LABS: Appearance Urine Clear (Clear); Bilirubin Urine Negative (Negative); Blood Urine Negative (Negative); Color Urine Yellow; Glucose Urine UA Negative (Negative); Ketones Urine Negative (Negative); Leukocyte Esterase Urine Negative (Negative); Nitrite Urine Negative (Negative); Protein Urine Negative (Negative); Specific Gravity Urine 1.015 (1.000-1.030); Urobilinogen Urine Negative (Negative)
--- NOTE | 2021-09-10 07:38 | Surgery Consultation ---
Date of Consultation September 10, 2021 Assessment & Plan (1) Incarcerated umbilical hernia: pt is a 56 year-old female who presents to ER with 2 days history abdominal pain, IMP; incarcerated recurrent umbilical hernia, plan, I recommend to do open repair incarcerated umbilical hernia, possible with mesh, or bowel resection, D/W benefits, risks and alternatives of the surgery, the risks - infection, bleeding, injury other organs, hernia recurrence, seroma, complications relate to mesh, OK, DVT, stoke, , pt understood, she agrees with surgery, she signed informed consent, I answered all questions, pre-op antibiotic, History of Present Illness Reason for Consultation: incarcerated umbilical hernia History of Present Illness CC: abdominal pain HPI: pt is a 56 year-old female who presents to ER with 2 days history periumbilical pain with bulging, and nausea, the pain is 7/10, pt had umbilical hernia repair with mesh in 2018, pt denies fever, no bloody stool, last BM yesterday, pt had CT scan at ER diagnosis- incarcerated umbilical hernia contain small bowel. I got a call for consult incarcerated umbilical hernia, I reviewed pt's H/P, labs, CT scan with pt and her . Allergies Allergy/AdvReac Type Severity Reaction Status Date / Time Penicillins Allergy Unknown RASH Verified 05/09/21 09:20 Home Medications Medication Instructions Recorded Confirmed Type blood sugar diagnostic (OneTouch #200 ea 06/02/20 04/04/21 Rx Verio test strips) aspirin 81 mg tablet,delayed 81 mg PO DAILY 10/12/20 05/09/21 History release (Aspirin Low Dose) pen needle, diabetic 31 gauge x #1200 ea 10/18/20 05/09/21 Rx /16" (Comfort EZ Pen [place]) metformin 500 mg tablet,extended 1,500 mg PO DAILY #90 tab 10/20/20 05/09/21 Rx release 24hr lisinopril 5 mg tablet 5 mg PO DAILY #90 tab 03/01/21 05/09/21 Rx atorvastatin 10 mg tablet 10 mg PO DAILY #90 tab 04/13/21 05/09/21 Rx blood sugar diagnostic (Contour #100 ea 07/10/21 Rx Next Test Strips) Patient History Medical History (Updated 09/10/21 @ 07:39 by Deja Narayanan MD) Abdominal abscess Dyslipidemia Hypertension Postmenopausal Pyelonephritis Recurrent umbilical hernia Seroma after procedure Type 2 diabetes mellitus Surgical History History of History of tubal ligation History of ventral hernia repair Hx of colonoscopy Family History Grandmother (Maternal) Diabetes Father Cancer Denies family history of Ovarian cancer Prostate cancer Myocardial infarction Breast cancer Colorectal cancer Social History (Updated 05/09/21 @ 09:23 by SHAMA Amin) Smoking Status: Former smoker Tobacco Type: Cigarettes Hx Alcohol Use: No Hx Substance Use: No Preferred Language: German Communication Ability: Effective Beliefs That Will Affect Care: None marital status: Current Living Situation: Spouse current occupational status: employed Feels Safe at Home: Yes Assistive Devices: Walker Review of Systems Constitutional: obesity Eyes: as per Subjective / HPI Respiratory: as per Subjective / HPI Cardiovascular: as per Subjective / HPI Additional Comments: HTN, dyslipidemia Gastrointestinal: umbilical hernai repair with mesh in 2018 Genitourinary: as per Subjective / HPI Neurologic: as per Subjective / HPI Psychiatric: as per Subjective / HPI Endocrine: DM Physical Exam Constitutional: obesity Eyes: PERRL, conjunctivae normal, anicteric sclerae Neck: trachea midline, no thyromegaly Respiratory: normal respiratory effort, lungs clear to auscultation Cardiovascular: RRR, no murmur, no edema Gastrointestinal (Abdomen): soft, large bulging and mass on umbilical area, could not reducible, some redness on umbilical area skin, some tenderness, no distend, BS + Musculoskeletal: no cyanosis or clubbing, extremities motor strength 5/5 Neurologic: patellar DTR's 2+ bilat, sensation intact Psychiatric: A+Ox3, euthymic affect Results & Data ([facility]) Vital Signs (Past 12 Hours) Vital Signs Temp Pulse Pulse Resp BP BP Pulse Ox 09/10/21 06:08 71 16 123/70 96 09/10/21 05:09 80 16 140/77 94 09/10/21 04:48 95 09/10/21 04:14 36.3 C L 95 H 16 153/91 H 95 Laboratory Results Abnormal lab results 09/10/21 09/10/21 Range/Units 04:44 04:44 RBC 3.93 L (4.2-5.4) M/uL MPV 10.6 H (7.4-10.4) fL Lymph # (Auto) 1.18 L (1.2-3.4) K/uL Sodium 134 L (136-145) mmol/L Glucose 166 H (70-99) mg/dl AST 13 L (15-37) U/L Diagnostic Findings CT scan- incarcerated umbilical hernia, contain small bowel,
--- NOTE | 2021-09-10 07:44 | History & Physical Bridge Note ---
Date of Service September 10, 2021 History & Physical Bridge Note I have examined the patient, reviewed the History & Physical and in the interval since the performance of the History & Physical I have noted the following changes of clinical significance: no changes noted
[2021-09-10] MEDS ORDERED: BACITRACIN OINT 15 GM TUBE ONE (08:10)
[2021-09-10] MEDS ORDERED: BUPIVACAINE 0.5 % 5 MG/1 ML MPF 30ML VIAL ONE (08:11)
[2021-09-10] MEDS ORDERED: LIDOCAINE 1% LOCAL 20 ML VIAL ONE (08:11)
[2021-09-10] MEDS ORDERED: SUCCINYLCHOLINE 100MG/5ML SYR IV ONE (08:30)
[2021-09-10] MEDS ORDERED: LIDOCAINE 2% 2 ML VIAL/AMP(20MG/ML) INFIL ONE ×2 (08:30→11:58)
[2021-09-10] MEDS ORDERED: MIDAZOLAM HCL 1 MG/ML 2ML VIAL ONE (08:30)
[2021-09-10] MEDS ORDERED: fentaNYL citrate 100 MCG/2 ML VIAL ONE ×2 (08:30→12:41)
[2021-09-10] MEDS ORDERED: ROCURONIUM BROMIDE 10 MG/ML 5 ML VIAL IV ONE ×10 (08:30→10:32)
[2021-09-10] MEDS ORDERED: ONDANSETRON INJ 2 MG/ML 2 ML VIAL ONE ×2 (08:30→10:32)
[2021-09-10] MEDS ORDERED: PROPOFOL IV EMULSION 10 MG/ML 20 ML VIAL IV ONE (08:30)
--- NOTE | 2021-09-10 08:30 | Anesthesiology Consultation ---
Date of Service September 10, 2021 Assessment & Plan (1) Encounter for pre-operative examination: Chart Review Chart Review: Acceptable Risk for Surgery and Patient NOT seen in Pre Admission Testing Consults Requested none ASA ASA3 Proposed Anesthesia Anesthesia Type: General Risk / Benefits Reviewed With: PT / POA / Parent / Guardian, Accepts Plan and Informed Consent Obtained History Surgery Operation Date: 09/10/21 11:00 Proposed Procedures p Inguinal Hernia Repair - Deja Narayanan MD Height/Weight Height: 5 ft 3 in Weight: 105.1 kg Allergies Allergy/AdvReac Type Severity Reaction Status Date / Time Penicillins Allergy Unknown RASH Verified 05/09/21 09:20 Medications Home Medications Medication Instructions Recorded Confirmed Last Taken blood sugar diagnostic (OneTouch #200 ea 06/02/20 04/04/21 Unknown Verio test strips) aspirin 81 mg tablet,delayed 81 mg PO DAILY 10/12/20 05/09/21 10/10/20 release (Aspirin Low Dose) pen needle, diabetic 31 gauge x #1200 ea 10/18/20 05/09/21 Unknown 5/16" (Comfort EZ Pen [place]) metformin 500 mg tablet,extended 1,500 mg PO DAILY #90 tab 10/20/20 05/09/21 Unknown release 24hr lisinopril 5 mg tablet 5 mg PO DAILY #90 tab 03/01/21 05/09/21 Unknown atorvastatin 10 mg tablet 10 mg PO DAILY #90 tab 04/13/21 05/09/21 Unknown blood sugar diagnostic (Contour #100 ea 07/10/21 Unknown Next Test Strips) Active Medications Generic Name Dose Route Start Last Admin Trade Name Freq PRN Reason Stop Dose Admin Sodium Chloride 1,000 mls @ 125 mls/hr 09/10/21 04:40 09/10/21 04:53 Nss 1000ml IV 09/10/21 12:39 125 mls/hr .Q8H STA Administration NPO Date Last Intake of Fluids: 09/09/21 Time Last Intake of Fluids: 21:30 Date Last Intake of Solids: 09/09/21 Time Last Intake of Solids: 21:30 Past Medical History Medical History Abdominal abscess Dyslipidemia Hypertension Postmenopausal Pyelonephritis Recurrent umbilical hernia Seroma after procedure Type 2 diabetes mellitus Exercise / Class Metabolic Activity II 4-5 Yardwork/Stairs/Walk up hill Negative for chest pain or shortness of breath. Past Family History Family History Grandmother (Maternal) Diabetes Father Cancer Denies family history of Ovarian cancer Prostate cancer Myocardial infarction Breast cancer Colorectal cancer Past Surgical History Surgical History History of History of tubal ligation History of ventral hernia repair Hx of colonoscopy Past Anesthesia History No Hx of Anesthesia Complications History of PONV No Hx of PONV Social History Smoking Status: Former smoker Hx Alcohol Use: No Hx Substance Use: No Review of Systems Patient denies active symptoms of GERD. Physical Exam Vital Signs Last Vital Signs Temp 36.3 C L 09/10/21 04:14 Pulse 78 09/10/21 08:04 Resp 18 09/10/21 08:04 BP 133/80 09/10/21 08:04 Pulse Ox 100 09/10/21 08:04 Constitutional + morbidly obese ENMT Mouth: + poor dentition; no TMJ abnormality and oral opening not small Thyromental Distance: < 3.5 Finger Breadths Mallampati Class: III Mouth / Teeth: 1. chipped and broken, worn down, denies loose teeth Neck normal visual inspection; neck extension not limited Respiratory normal respiratory effort Auscultation: lungs clear to auscultation bilaterally Cardiovascular Rate/Rhythm: regular rate and regular rhythm Heart Sounds: no murmur Neurologic moves all extremities Psychiatric Orientation: alert and oriented x 3 Testing Laboratory Results 09/10/21 04:44 09/10/21 04:44 Urine Color Yellow 09/10/21 06:47 Urine Appearance Clear (Clear) 09/10/21 06:47 Urine pH 5.0 (4.5-7.5) 09/10/21 06:47 Ur Specific [place] 1.015 (1.000-1.030) 09/10/21 06:47 Urine Protein Negative (Negative) 09/10/21 06:47 Urine Glucose (UA) Negative (Negative) 09/10/21 06:47 Urine Ketones Negative (Negative) 09/10/21 06:47 Urine Nitrite Negative (Negative) 09/10/21 06:47 Ur Leukocyte Esterase Negative (Negative) 09/10/21 06:47
--- NOTE | 2021-09-10 09:44 | CT Scan Report ---
CT abd pelvis wo con CLINICAL HISTORY: obesity, periumbilical hernia, h/o repair w mesh prior CT abdomen pelvis 05/18/2018 TECHNIQUE: Helical axial images of the abdomen and pelvis were obtained. Automated dose lowering tech niques and/or adjustment according to patient size were utilized for this exam. This exam was perfor med without intravenous contrast. COMPARISON: Comparison is made to CT abdomen pelvis 05/18/2018 FINDINGS: Lower chest: Bibasilar atelectasis is seen. Cardiomegaly is noted. Liver: Unremarkable. No focal lesions are seen. Gallbladder and biliary tree: No calcified gallstones. Normal caliber wall. No intra- or extrahepatic biliary ductal dilation. Pancreas: Unremarkable, no focal lesions. Spleen: Unremarkable. Adrenals: Unremarkable. Kidneys and ureters: Unremarkable. Bladder: Limited evaluation due to underdistention. Reproductive organs: Unremarkable. Bowel: Multiple loops of bowel are seen in an umbilical hernia. There is some dilation of bowel loops within the hernia, measuring up to 38 mm in diameter. Mild distention and fat stranding of the jl en loop is also noted. Lymph nodes Retroperitoneal: Unremarkable. Mesenteric: Unremarkable. Pelvic: Unremarkable. Peritoneum: Normal Vessels: Unremarkable. Abdominal wall: An umbilical hernia is noted with a neck measuring 2.9 cm in diameter. Bones: Unremarkable. IMPRESSION: Likely partial small bowel obstruction at the level of the umbilical hernia with multiple dilated loo ps of bowel seen. ACT 112: Negative or not required by law. Electronically signed by: Terry Bhatia M.D. 09/10/2021 9:43 AM
[2021-09-10] MEDS ORDERED: NEOSTIGMINE METHYLSULFATE 1 MG/ML 10ML VIAL ONE (11:57)
[2021-09-10] MEDS ORDERED: ePHEDrine sulfate 50 MG/ML AMP ONE (11:57)
[2021-09-10] MEDS ORDERED: GLYCOPYRROLATE 0.2 MG/ML VIAL ONE (11:57)
[2021-09-10] MEDS ORDERED: KETOROLAC 30 MG/ML VIAL ONE (12:02)
--- NOTE | 2021-09-10 12:15 | Post Operative Brief Note ---
Immediate Post Op Note v1 Date of Surgery September 10, 2021 Pre & Post Diagnosis Operation Date: 09/10/21 11:00 Pre-Op Diagnosis: Incarcerated recurrent umbilical hernia Post-Op Diagnosis: Incarcerated recurrent umbilical hernia I identified the patient and participated in the time-out.: Yes Procedure Operation Date: 09/10/21 11:00 Actual Procedures p Open Repair Incarcerated Umbilical Hernia with mesh - Deja Narayanan MD Surgeon Deja Narayanan MD [employer] cardiovascular surgical tech Estimated Blood Loss 20 Findings Consistent with Post-Op Diagnosis incarcerated recurrent umbilical hernia, contain small bowel, Fluids 2000ml Specimens hernia sac Drains Womack Catheter (inserted at beginning of case and removed at end) Anesthesia Type General Complications none Disposition Accompanied Patient To Recovery: Yes
[2021-09-10] MEDS ORDERED: ONDANSETRON INJ 2 MG/ML 2 ML VIAL IV PRN ×2 (12:27→12:34)
[2021-09-10] MEDS ORDERED: ATROPINE SULFATE 0.1 MG/ML 10ML SYR IV PRN (12:34)
[2021-09-10] MEDS ORDERED: ePHEDrine sulfate 50 MG/ML AMP IV PRN (12:34)
[2021-09-10] MEDS: fentaNYL citrate 100 MCG/2 ML VIAL IV PRN ×2 (12:40→12:45)
--- NOTE | 2021-09-10 13:23 | Anesthesiology Progress Note ---
Date of Service September 10, 2021 Anesthesia Post Procedure Vital Signs Vital Signs: Temp Pulse Pulse Pulse Resp BP BP 09/10/21 13:15 77 16 122/65 09/10/21 13:05 36.5 C 75 16 126/68 09/10/21 12:55 79 16 125/69 09/10/21 12:45 84 16 122/62 09/10/21 12:36 36.1 C L 84 16 134/75 09/10/21 08:04 78 18 133/80 09/10/21 06:08 71 16 09/10/21 05:09 80 16 09/10/21 04:48 09/10/21 04:14 36.3 C L 95 H 16 153/91 H BP Pulse Ox 09/10/21 13:15 98 09/10/21 13:05 95 09/10/21 12:55 95 09/10/21 12:45 95 09/10/21 12:36 95 09/10/21 08:04 100 09/10/21 06:08 123/70 96 09/10/21 05:09 140/77 94 09/10/21 04:48 95 09/10/21 04:14 95 Pain Intensity Abdomen: Pain Intensity: 2 Transfer of Care Handoff Completed per policy Notes Mental Status: alert / awake / arousable and participated in evaluation Patient Amnestic to Procedure: Yes Nausea / Vomiting: adequately controlled Pain: adequately controlled Airway Patency, RR, SpO2: stable & adequate BP & HR: stable & adequate Hydration State: stable & adequate Anesthetic Complications: no major complications apparent and Pt Satisfied with anesthetic care
[2021-09-10] MEDS ORDERED: BLOOD SUGAR DIAGNOSTIC SCH (13:38)
[2021-09-10] MEDS ORDERED: LACTATED RINGER'S 1,000 ML IV SCH (13:38)
[2021-09-10] MEDS ORDERED: NON-FORMULARY MEDICATION (Blood Sugar Diagnostic [Onetouch Verio Test Strips] strip) SCH (13:38)
[2021-09-10] MEDS ORDERED: HYDROmorphone INJ 1 MG/ML SYRINGE IV PRN (13:38)
[2021-09-10] MEDS ORDERED: oxyCODONE/ACETAMINOPHEN 5mg/325mg TAB PO PRN (13:38)
[2021-09-10] MEDS ORDERED: GLUCOSE 40% GEL 15 GM TUBE PO PRN (14:42)
[2021-09-10] MEDS ORDERED: GLUCOSE 10 TABS/TUBE PO PRN (14:42)
[2021-09-10] MEDS ORDERED: CARBOHYDRATES FOR HYPOGLYCEMIA PO PRN (14:42)
[2021-09-10] MEDS ORDERED: GLUCAGON FOR INJ 1 MG VIAL SQ PRN (14:42)
[2021-09-10] MEDS ORDERED: DEXTROSE 50% 50 ML SYRINGE IV PRN (14:42)
--- NOTE | 2021-09-10 14:55 | Hospitalist Consultation ---
Date of Consultation September 10, 2021 Assessment & Plan (1) Incarcerated umbilical hernia: -S/p open repair of incarcerated umbilical hernia Lengthy discussion with patient regarding the importance of incentive spirometry use Recommend adequate pain control, and DVT prophylaxisat discretion of primary team P.o. intake and dietary advancement is at the discretion of primary team (2) Type 2 diabetes mellitus: Okay to resume Metformin as prior to hospitalization (no contraindications at this time as patient's CT scan done in the emergency department was done without contrast thus no risk for contrast nephropathy in the setting of Metformin) I have added blood sugar monitoring with sliding scale for correction dosing (3) Hypertension: Okay to resume lisinopril as prior to hospitalization Patient received general anesthesia which poses no increased risk of JALIL with NIELS inhibitors (as does spinal anesthesia) (4) Dyslipidemia: Continue Lipitor as prior to hospitalization We will sign off on this patient; however, do not hesitate to reconsult should a problem arise or reach out with any questions or concerns. Thank you for allowing us to participate in the care of this patient. Plan of care will be discussed with Dr. Mariscal-further orders as warranted. Supervising Physician Co-Signing Physician Notes Patient seen and examined, chart reviewed, case discussed with Dariana Garcia PA-C and I agree with the assessment and plan as above General: NAD. Skin warm and dry HEENT: Atraumatic, normocephalic. Pupils equal and reactive. Visual acuity and hearing grossly intact. Pulm: CTAB A&P. -wheezes, -rales, -rhonchi. Symmetrical chest rise. No increase work of breathing. No respiratory distress. Cardiac: RRR, -mrg. Radial pulses intact and symmetrical. Abdominal: Abd binder in place BS present. All labs and images reviewed T2DM, HTN, Dyslipidemia. Agree with management as above History of Present Illness Reason for Consultation: Medical management Attending Physician: Deja Narayanan MD History of Present Illness Mrs. Victoria is a 56-year-old white female with a PMHx of NIDDM, HTN, and hyperlipidemia. She is being seen in consultation for medical management s/p open repair of incarcerated umbilical hernia with mesh. She presented to the ED today complaining of abdominal pain X 2 days. She had an uneventful perioperative course and is currently resting comfortably in her hospital bed. She denies fevers, chills, chest pain, shortness of breath, abdominal pain, nausea or vomiting. She is on Metformin for her glycemic management and reports that her blood sugars are well controlled. Last A1c was January 2021 at 6.6%. Patient did have a CT of the abdomen and pelvis done in the ED (without contrast) but did show multiple dilated loops of bowel in her umbilical hernia it was taken emergently to the operating room. Patient denies a history of postoperative complications in the past. She denies a personal and/or family history of DVT/PE/blood dyscrasia. Medicine has been consulted for glycemic management. Allergies Allergy/AdvReac Type Severity Reaction Status Date / Time Penicillins Allergy Unknown RASH Verified 05/09/21 09:20 Home Medications Medication Instructions Recorded Confirmed Type blood sugar diagnostic (OneTouch #200 ea 06/02/20 04/04/21 Rx Verio test strips) aspirin 81 mg tablet,delayed 81 mg PO DAILY 10/12/20 09/10/21 History release (Aspirin Low Dose) pen needle, diabetic 31 gauge x #1200 ea 10/18/20 05/09/21 Rx /16" (Comfort EZ Pen [place]) metformin 500 mg tablet,extended 1,500 mg PO DAILY #90 tab 10/20/20 09/10/21 Rx release 24hr lisinopril 5 mg tablet 5 mg PO DAILY #90 tab 03/01/21 09/10/21 Rx atorvastatin 10 mg tablet 10 mg PO DAILY #90 tab 04/13/21 09/10/21 Rx blood sugar diagnostic (Contour #100 ea 07/10/21 Rx Next Test Strips) Patient History Medical History Abdominal abscess Dyslipidemia Hypertension Postmenopausal Pyelonephritis Recurrent umbilical hernia Seroma after procedure Type 2 diabetes mellitus Surgical History History of History of tubal ligation History of ventral hernia repair Hx of colonoscopy Family History Grandmother (Maternal) Diabetes Father Cancer Denies family history of Ovarian cancer Prostate cancer Myocardial infarction Breast cancer Colorectal cancer Social History Smoking Status: Former smoker Tobacco Type: Cigarettes Second Hand Exposure: No; Do You Dip or Chew Tobacco: No; Hx Alcohol Use: No Hx Substance Use: No Preferred Language: Telugu Communication Ability: Effective Health Information Systems Technician Required: No Beliefs That Will Affect Care: None marital status: Current Living Situation: Spouse current occupational status: employed Other Information That Helps Us Care for You: No Feels Safe at Home: Yes Safety Concerns: Feels Safe At This Time Assistive Devices: Glasses Review of Systems Review of Systems: All systems reviewed and are unremarkable except as noted in HPI and below Denies fevers, chills, headache, nasal congestion, sore throat, cough, chest pain, shortness of breath, palpitations, orthopnea, PND, abdominal pain, nausea, vomiting, diarrhea, constipation, dysuria, hematuria, frequency, back pain, joint pain or swelling, easy bruising or bleeding, skin lesions or rashes. Physical Exam Physical Exam: General: Resting comfortably in her hospital bed. NAD. HEENT: Head is AT/NC buccal dry Neck: No JVD. Negative hepatojugular reflex Cardiac: RRR without M/G/R Lungs: CTA without W/R/R Abdomen: Abdominal binder in place. It is dry. No obvious indwelling drains present. She does appear to have normoactive BS X4. Her abdomen is soft and tender only between the umbilicus and suprapubic region Extremities: No peripheral clubbing cyanosis or edema Neuro: A&O X4 cranial nerves II through XII are grossly intact no focal neuro deficits Skin: No obvious skin lesions or rashes Psych: Appropriate affect pleasant and cooperative Results & Data Results & Data ([facility]) Vital Signs (Past 12 Hours) Vital Signs Temp Pulse Pulse Pulse Resp BP BP 09/10/21 14:00 36.8 C 76 18 124/79 09/10/21 13:46 36.5 C 80 16 128/82 09/10/21 13:15 77 16 122/65 09/10/21 13:05 36.5 C 75 16 126/68 09/10/21 12:55 79 16 125/69 09/10/21 12:45 84 16 122/62 09/10/21 12:36 36.1 C L 84 16 134/75 09/10/21 08:04 78 18 133/80 09/10/21 06:08 71 16 09/10/21 05:09 80 16 09/10/21 04:48 09/10/21 04:14 36.3 C L 95 H 16 153/91 H BP Pulse Ox 09/10/21 14:00 97 09/10/21 13:46 98 09/10/21 13:15 98 09/10/21 13:05 95 09/10/21 12:55 95 09/10/21 12:45 95 09/10/21 12:36 95 09/10/21 08:04 100 09/10/21 06:08 123/70 96 09/10/21 05:09 140/77 94 09/10/21 04:48 95 09/10/21 04:14 95 Laboratory Results 09/10/21 04:44 09/10/21 04:[address] of the abdomen and pelvis: IMPRESSION: Likely partial small bowel obstruction at the level of the umbilical hernia with multiple dilated loops of bowel seen. PG Care Time/CCT Total # of Minutes Spent Total Time Spent with Patient: Total time spent is greater than 50% in coordination of care (as documented) at patient's floor/unit and/or counseling patient: Coding Level of Care Code 08082 Inpt Consult Level 4 Diagnoses Incarcerated umbilical hernia K42.0 Hypertension I10 Dyslipidemia E78.5 Type 2 diabetes mellitus E11.9
[2021-09-10] MEDS: CIPROFLOXACIN / D5W 400 MG/200 ML BAG IV SCH (15:31)
[2021-09-10] MEDS: metFORMIN HCL ER 500 MG TABCR PO SCH (17:35)
[2021-09-10] MEDS: INSULIN ASPART 100 UNITS/ML 3 ML PEN SC SCH ×2 (17:59→21:28)
--- NOTE | 2021-09-10 21:50 | Operative Report (OR) ---
DATE OF SURGERY: 09/10/2021. PREOPERATIVE DIAGNOSIS: Incarcerated recurrent umbilical hernia. POSTOPERATIVE DIAGNOSIS: Incarcerated recurrent umbilical hernia. PROCEDURE: Open repair of incarcerated umbilical hernia with mesh. SURGEON: Deja Narayanan MD. ANESTHESIA: General. ESTIMATED BLOOD LOSS: About 20 mL. FINDINGS: Incarcerated recurrent umbilical hernia. COMPLICATIONS: None. INDICATIONS FOR THE PROCEDURE: This is a 56-year-old female who presented to ED with 2 days history of abdominal pain and the patient had a CT scan diagnosis of incarcerated umbilical hernia. I recommended to do the open repair of incarcerated umbilical hernia, possible mesh, possible bowel resection. I did talk to the patient about the benefit, risk, alternate procedure. I indicated the risks may include, but not limited to, such as bleeding, infection, hernia recurrence, seroma, complication related to the mesh, injury to other organs, myocardial infarction, DVT, stroke, even . The patient understands and she signed informed consent and I answered all questions. DETAILS OF PROCEDURE: After we identified the patient and verified the procedure, we brought the patient to the OR, put the patient in the supine position on the OR table. The patient received SCD on bilateral legs to prevent DVT. Also, patient received 600 mg of clindamycin IV for prophylactic antibiotic. The patient received general anesthesia without difficulty. Also, patient received Womack catheter insertion. Abdomen was prepped and draped in routine sterile fashion. After timeout, I made a transverse incision just below the umbilicus and then we mobilized the hernia, found the patient has a significant large hernia and we could not reduce the hernia back to the abdominal cavity. At this moment, we mobilized the hernia sac and take down the umbilicus adhesion to the hernia. The patient had a lot of scar around the hernia neck. Based on the patient had a hernia repair in the past. On the midline, we made a 2 cm incision on the fascial layer to enlarge the hernia and then we get in the abdominal cavity and opened the hernia sac and then we found the patient had a hernia sac contained small bowel with a lot of scar adhesion. We take down all of the scar adhesion and rechecked the bowel. It was pink. We returned the small bowel back to the abdominal cavity and then we resected the hernia sac, sent to pathology. Then, we measured the hernia, the size of about an 8 x 10 cm. I decided to use a 11 x 13 cm mesh to repair the hernia by using #1 Ethibond suture fascial layer to the mesh interruptedly. Then, we tied the suture one by one, the mesh seated nicely, no tension. Hemostasis obtained, then I closed subcutaneous layer by using 2-0 Vicryl continuous running, closed skin by using 4-0 Vicryl continuous running. Then we put the dressing on. The patient tolerated the procedure well. All instrument, needle and sponge counts were correct x2 at the end of the case. The patient was transferred to recovery room in stable condition. The specimen was sent to pathology. After the procedure, I did talk to the patient about the OR finding and the procedure we did, patient understands. Job ID: [id number] [facility]
[2021-09-11] MEDS: CIPROFLOXACIN / D5W 400 MG/200 ML BAG IV SCH (02:42)
--- NOTE | 2021-09-11 05:40 | Electrocardiogram Report ---
Test Reason : Blood Pressure : / mmHG Vent. Rate : 076 BPM Atrial Rate : 076 BPM P-R Int : 112 ms QRS Dur : 094 ms QT Int : 364 ms P-R-T Axes : 017 017 065 degrees QTc Int : 409 ms Normal sinus rhythm When compared with ECG of 12-OCT-2020 14:33, No significant change was found Confirmed by Juancho Workman ([id number]) on 09/11/2021 5:39:56 AM Referred By: REFERRED SELF Confirmed By:Juancho Workman
--- NOTE | 2021-09-11 05:54 | Emergency Department Note ---
Impression & Plan Incarcerated umbilical hernia, Recurrent umbilical hernia ED Provider Note CHIEF COMPLAINT: umbilical hernia HISTORY OF PRESENT ILLNESS: This 56 yo female patient presents to the emergency department who presents to the ED with c/o umbilical pain and swelling x 3 days in addition to constipation. Pt states this reminds her of the umbilical hernia she had repaired years ago. Pt denies vomiting but has been nauseated. Pt denies fevers, CP, SOB. REVIEW OF SYSTEMS: A review of systems was performed with positives and pertinent negatives listed in the history of present illness. 10 systems were reviewed and are otherwise negative. ALLERGIES: see below MEDICATIONS: see below PMH: see below SOCIAL HISTORY: see below DDx: Gastroenteritis, hernia, food borne illness, infections, appendicitis, diverticulitis, inflammatory bowel disease, obstruction, GI bleed, biliary path ology, volvulus, as well as other pathologies. PHYSICAL EXAM: Vital signs reviewed. General: Well-appearing 56 yo female, in no significant distress. HEENT: No scleral icterus, PERRLA, neck supple. Atraumatic. Cardiovascular: Regular rate and rhythm, no extra sounds. Pulmonary: Clear to auscultation bilaterally, normal work of breathing. Abdomen: Soft, obese, tender to palpation of the umbilical region with induration, +tympany, positive bowel sounds. Musculoskeletal: Atraumatic, no peripheral edema. Neurologic: Patient awake alert and oriented x 3 Skin: Warm, dry, no rash EMERGENCY DEPARTMENT COURSE/MDM: This patient was evaluated and appeared to be in no significant distress. IV access was obtained and laboratory work was drawn. Patient was placed on a residential monitor and noted to be in normal sinus rhythm. She was hydrated with normal saline solution, given IV Dilaudid and Zo enio for her discomfort. CT imaging of the abdomen pelvis was performed and reveals a large umbilical hernia. Patient was reevaluated and an attempt at reducing the hernia was made after the patient was given an additional 0.5 mg of IV Dilaudid. CT imaging reveals that there is bowel within the hernia. Patient's WBC and white count are within normal limits. Given her history of previous bowel resection and now incarceration, Dr. Narayanan of general surgery was consulted for further management. Patient was aware of the plan for operative management and agreed. MONITORING: An order for cardiac monitoring was placed and the patient is noted to be in a NSR at 90 beats per minute. RADIOLOGY: See below EKG: Normal sinus rhythm at 76 bpm. QTc is 409. No PVC, no PAC. Normal ST segments. Normal axis. DISPOSITION: Operating room Past Med/Surg History Medical History Abdominal abscess Dyslipidemia Hypertension Postmenopausal Pyelonephritis Recurrent umbilical hernia Seroma after procedure Type 2 diabetes mellitus Surgical History History of History of tubal ligation History of ventral hernia repair Hx of colonoscopy Family History Grandmother (Maternal) Diabetes Father Cancer Denies family history of Ovarian cancer Prostate cancer Myocardial infarction Breast cancer Colorectal cancer Social History Smoking Status: Former smoker Tobacco Type: Cigarettes Second Hand Exposure: No; Do You Dip or Chew Tobacco: No; Hx Alcohol Use: No Hx Substance Use: No Preferred Language: Vietnamese Communication Ability: Effective Mgmt Specialist Required: No Beliefs That Will Affect Care: None marital status: Current Living Situation: Spouse current occupational status: employed Other Information That Helps Us Care for You: No Feels Safe at Home: Yes Safety Concerns: Feels Safe At This Time Assistive Devices: Glasses Allergies Allergies Allergy/AdvReac Type Severity Reaction Status Date / Time Penicillins Allergy Unknown RASH Verified 05/09/21 09:20 Home Meds Home Medications Medication Instructions Recorded Confirmed aspirin 81 mg tablet,delayed 81 mg PO DAILY 10/12/20 09/10/21 release (Aspirin Low Dose) Previous Rx's Medication Instructions Recorded blood sugar diagnostic (OneTouch #200 ea 06/02/20 Verio test strips) pen needle, diabetic 31 gauge x #1200 ea 10/18/20/" (Comfort EZ Pen [place]) metformin 500 mg tablet,extended 1,500 mg PO DAILY #90 tab 10/20/20 release 24hr lisinopril 5 mg tablet 5 mg PO DAILY #90 tab 03/01/21 atorvastatin 10 mg tablet 10 mg PO DAILY #90 tab 04/13/21 blood sugar diagnostic (Contour #100 ea 07/10/21 Next Test Strips) Results & Data (ED) Vital Signs Vital Signs - 24 hr 09/10/21 06:08 09/10/21 08:04 Pulse Rate 78 Pulse Rate [Finger] 71 Respiratory Rate 16 18 Blood Pressure 133/80 Blood Pressure [Left Radial Artery] 123/70 Blood Pressure Mean [Left Radial Artery] 87 Blood Pressure Position [Left Radial Artery] Lying Pulse Oximetry 96 100 Oxygen Delivery Method Room Air Room Air Home Medications Current Medication List: was personally reviewed by me Laboratory Data Attestation: I reviewed the patient's lab results. Result diagrams: 09/10/21 04:44 09/10/21 04:44 Lab Results 09/10/21 09/10/21 09/10/21 Range/Units 04:44 04:44 04:44 WBC 6.51 (4.8-10.8) K/uL RBC 3.93 L (4.2-5.4) M/uL Hgb 12.8 (12.0-16.0) g/dL Hct 37.8 (37-47) % MCV 96.2 (80-100) fL MCH 32.6 (25-34) pg MCHC 33.9 (32-36) g/dL RDW Std Deviation 44.0 (36.4-46.3) fL RDW Coeff of Ramone 12.5 (11.5-14.5) % Plt Count 320 (130-400) K/uL MPV 10.6 H (7.4-10.4) fL Immature Gran % (Auto) 0.2 % Neut % (Auto) 73.1 % Lymph % (Auto) 18.1 % [place] % (Auto) 8.1 % Eos % (Auto) 0.3 % Baso % (Auto) 0.2 % Neut # (Auto) 4.76 (1.4-6.5) K/uL Lymph # (Auto) 1.18 L (1.2-3.4) K/uL [place] # (Auto) 0.53 (0.11-0.59) K/uL Eos # (Auto) 0.02 (0-0.5) K/uL Baso # (Auto) 0.01 (0-0.2) K/uL Immature Gran # (Auto) 0.01 (0.00-0.02) K/uL Sodium 134 L (136-145) mmol/L Potassium 4.0 (3.5-5.1) mmol/L Chloride 103 (98-107) mmol/L Carbon Dioxide 26 (21-32) mmol/L Anion Gap 5.0 (3-11) BUN 16 (7-18) mg/dl Creatinine 0.93 (0.6-1.2) mg/dl Est Cr Clr Drug Dosing 76.5 ml/min Est GFR ( Amer) 78.5 ml/min Est GFR (Non-Af Amer) 67.7 ml/min BUN/Creatinine Ratio 17.0 (10-20) Glucose 166 H (70-99) mg/dl Lactate 1.2 (0.4-2.0) mmol/L Calcium 9.3 (8.5-10.1) mg/dl Total Bilirubin 0.7 (0.2-1) mg/dl AST 13 L (15-37) U/L ALT 21 (12-78) U/L Alkaline Phosphatase 62 (45-117) U/L Troponin I < 0.015 (0-0.045) ng/ml Total Protein 7.5 (6.4-8.2) gm/dl Albumin 3.6 (3.4-5.0) gm/dl Globulin 3.9 (2.5-4.0) gm/dl Albumin/Globulin Ratio 0.9 (0.9-2) Lipase 114 (73-393) U/L Urine Color Urine Appearance (Clear) Urine pH (4.5-7.5) Ur Specific [place] (1.000-1.030) Urine Protein (Negative) Urine Glucose (UA) (Negative) Urine Ketones (Negative) Urine Blood (Negative) Urine Nitrite (Negative) Urine Bilirubin (Negative) Urine Urobilinogen (Negative) Ur Leukocyte Esterase (Negative) COVID-19 Eval Order SARS-CoV-2 (PCR) (Negative) 09/10/21 09/10/21 09/10/21 Range/Units 05:53 05:53 06:47 WBC (4.8-10.8) K/uL RBC (4.2-5.4) M/uL Hgb (12.0-16.0) g/dL Hct (37-47) % MCV (80-100) fL MCH (25-34) pg MCHC (32-36) g/dL RDW Std Deviation (36.4-46.3) fL RDW Coeff of Ramone (11.5-14.5) % Plt Count (130-400) K/uL MPV (7.4-10.4) fL Immature Gran % (Auto) % Neut % (Auto) % Lymph % (Auto) % [place] % (Auto) % Eos % (Auto) % Baso % (Auto) % Neut # (Auto) (1.4-6.5) K/uL Lymph # (Auto) (1.2-3.4) K/uL [place] # (Auto) (0.11-0.59) K/uL Eos # (Auto) (0-0.5) K/uL Baso # (Auto) (0-0.2) K/uL Immature Gran # (Auto) (0.00-0.02) K/uL Sodium (136-145) mmol/L Potassium (3.5-5.1) mmol/L Chloride (98-107) mmol/L Carbon Dioxide (21-32) mmol/L Anion Gap (3-11) BUN (7-18) mg/dl Creatinine (0.6-1.2) mg/dl Est Cr Clr Drug Dosing ml/min Est GFR ( Amer) ml/min Est GFR (Non-Af Amer) ml/min BUN/Creatinine Ratio (10-20) Glucose (70-99) mg/dl Lactate (0.4-2.0) mmol/L Calcium (8.5-10.1) mg/dl Total Bilirubin (0.2-1) mg/dl AST (15-37) U/L ALT (12-78) U/L Alkaline Phosphatase (45-117) U/L Troponin I (0-0.045) ng/ml Total Protein (6.4-8.2) gm/dl Albumin (3.4-5.0) gm/dl Globulin (2.5-4.0) gm/dl Albumin/Globulin Ratio (0.9-2) Lipase (73-393) U/L Urine Color Yellow Urine Appearance Clear (Clear) Urine pH 5.0 (4.5-7.5) Ur Specific [place] 1.015 (1.000-1.030) Urine Protein Negative (Negative) Urine Glucose (UA) Negative (Negative) Urine Ketones Negative (Negative) Urine Blood Negative (Negative) Urine Nitrite Negative (Negative) Urine Bilirubin Negative (Negative) Urine Urobilinogen Negative (Negative) Ur Leukocyte Esterase Negative (Negative) COVID-19 Eval Order Covid19 at [facility] SARS-CoV-2 (PCR) NEGATIVE (Negative) Administered Medications Ciprofloxacin (Cipro / D5w) 400 mg in 200 mls @ 100 mls/hr IV Q12H TERRA; Protocol Stop: 09/11/21 14:29 Last Infusion: 09/11/21 05:04 Dose: 0 mls/hr Documented by: [id number] Admin: 09/11/21 02:42 Dose: 100 mls/hr Documented by: [id number] Infusion: 09/10/21 17:35 Dose: 0 mls/hr Documented by: [id number] Admin: 09/10/21 15:31 Dose: 100 mls/hr Documented by: [id number] Insulin Aspart (Insulin Aspart 100 Units/Ml 3 Ml Pen) 0 units SC ACHS [facility] Stop: 10/10/21 16:29 Last Admin: 09/10/21 21:28 Dose: 1 units Documented by: [id number] Cosigned by: [id number] Admin: 09/10/21 17:59 Dose: 4 units Documented by: [id number] Cosigned by: [id number] Metformin HCl (Metformin Hcl Er 500 Mg Tabcr) 1,000 mg PO DAILY@1700 TERRA Stop: 10/10/21 16:59 Last Admin: 09/10/21 17:35 Dose: 1,000 mg Documented by: [id number] Oxycodone/Acetaminophen (Oxycodone/Acetaminophen 5mg/325mg Tab) 1 tab PO Q4H PRN PRN Reason: Pain Stop: 09/24/21 13:37 Last Admin: 09/10/21 21:28 Dose: 1 tab Documented by: [id number] Discontinued Medications Bacitracin (Bacitracin Oint 15 Gm Tube) Confirm Administered Dose 45 appln .ROUTE .STK-MED ONE Stop: 09/10/21 08:11 Last Admin: 09/10/21 09:42 Dose: 45 appln Documented by: [id number] Bupivacaine HCl (Bupivacaine 0.5 % 5 Mg/1 Ml Mpf 30ml Vial) Confirm Administered Dose 30 ml .ROUTE .STK-MED ONE Stop: 09/10/21 08:12 Last Admin: 09/10/21 12:07 Dose: 12 ml Documented by: [id number] Fentanyl Citrate (Fentanyl Citrate 100 Mcg/2 Ml Vial) 50 mcg IV Q5M PRN PRN Reason: PACU Use Only-Pain Stop: 09/10/21 20:35 Last Admin: 09/10/21 12:45 Dose: 50 mcg Documented by: [id number] Admin: 09/10/21 12:40 Dose: 50 mcg Documented by: [id number] Fentanyl Citrate (Fentanyl Citrate 100 Mcg/2 Ml Vial) Confirm Administered Dose 100 mcg .ROUTE .STK-MED ONE Stop: 09/10/21 12:42 Last Admin: 09/10/21 14:12 Dose: Not Given Documented by: [id number] Hydromorphone HCl (Hydromorphone Inj 0.5 Mg/0.5 Ml Syr) 0.5 mg IV NOW STA Stop: 09/10/21 04:41 Last Admin: 09/10/21 04:53 Dose: 0.5 mg Documented by: [id number] Hydromorphone HCl (Hydromorphone Inj 0.5 Mg/0.5 Ml Syr) 0.5 mg IV NOW STA Stop: 09/10/21 05:17 Last Admin: 09/10/21 05:17 Dose: 0.5 mg Documented by: [id number] Sodium Chloride (Nss 1000ml) 1,000 mls @ 125 mls/hr IV .Q8H STA Stop: 09/10/21 12:39 Last Infusion: 09/10/21 14:13 Dose: 0 mls/hr Documented by: [id number] Admin: 09/10/21 04:53 Dose: 125 mls/hr Documented by: [id number] Clindamycin Phosphate (Cleocin) 600 mg in 54 mls @ 100 mls/hr IV PREOP TERRA Stop: 09/10/21 18:00 Last Infusion: 09/10/21 14:13 Dose: 0 mls/hr Documented by: [id number] Admin: 09/10/21 09:06 Dose: 100 mls/hr Documented by: [id number] Lactated Ringer's (Lr) 1,000 mls @ 80 mls/hr IV .[id number] TERRA Stop: 09/11/21 02:07 Last Infusion: 09/10/21 22:56 Dose: 0 mls/hr Documented by: [id number] Admin: 09/10/21 14:12 Dose: 80 mls/hr Documented by: [id number] Lidocaine HCl (Lidocaine 1% Local 20 Ml Vial) Confirm Administered Dose 20 ml .ROUTE .STK-MED ONE Stop: 09/10/21 08:12 Last Admin: 09/10/21 12:07 Dose: 12 ml Documented by: [id number] Ondansetron HCl (Ondansetron Inj 2 Mg/Ml 2 Ml Vial) 4 mg IV NOW STA Stop: 09/10/21 04:41 Last Admin: 09/10/21 04:53 Dose: 4 mg Documented by: [id number] Blood Pressure Blood Pressure Findings: Normal blood pressure Blood Pressure Disposition: did not require urgent referral Discharge Plan Visit Data Chief Complaint: Constipation Stated Complaint: PAIN IN BELLY,NO BOWEL MOVEMENT,RODRIGUEZ ED Provider: Juliana Ambrocio Discharge Problem: Incarcerated umbilical hernia, Recurrent umbilical hernia Patient Disposition: Admitted As Inpatient Discharge Instructions Interventions: ED Discharge Assessment Last Done: 09/10/21 08:04
[2021-09-11 06:28] LABS: Basophils # (auto) 0.01 K/uL (0-0.2); Basophils % (auto) 0.1 %; Eosinophils # (auto) 0.01 K/uL (0-0.5); Eosinophils % (auto) 0.1 %; Hematocrit (blood only) 32.9 % (37-47); Hemoglobin 10.9 g/dL (12.0-16.0); Immature Granulocytes # (auto) 0.01 K/uL (0.00-0.02); Immature Granulocytes % (auto) 0.1 %; Lymphocytes # (auto) 0.72 K/uL (1.2-3.4); Lymphocytes % (auto) 9.7 %; Mean Corpuscular Hemoglobin 32.8 pg (25-34); Mean Corpuscular Hgb Conc 33.1 g/dL (32-36); Mean Corpuscular Volume 99.1 fL (80-100); Mean Platelet Volume 10.3 fL (7.4-10.4); Monocytes # (auto) 0.74 K/uL (0.11-0.59); Neutrophils # (auto) 5.94 K/uL (1.4-6.5); Platelet Count 258 K/uL (130-400); RDW Coefficient of Variation 12.7 % (11.5-14.5); RDW Standard Deviation 45.9 fL (36.4-46.3); Red Blood Count 3.32 M/uL (4.2-5.4); White Blood Count 7.43 K/uL (4.8-10.8)
[2021-09-11 07:03] LABS: BUN Creatinine Ratio 16.8 (10-20); Calcium 8.7 mg/dl (8.5-10.1); Creatinine Clr Calc Pharmacy 74.1 ml/min; Est GFR (African American) 75.6 ml/min; Est GFR (Non-African American) 65.2 ml/min; Magnesium 1.9 mg/dl (1.8-2.4); Potassium 4.1 mmol/L (3.5-5.1)
[2021-09-11 07:06] LABS: Albumin Globulin Ratio 0.8 (0.9-2); Bilirubin,Total 0.7 mg/dl (0.2-1); Globulin 3.7 gm/dl (2.5-4.0); Total Protein 6.7 gm/dl (6.4-8.2)
[2021-09-11] MEDS ORDERED: metFORMIN HCL ER 500 MG TABCR PO SCH (09:00)
[2021-09-11] MEDS: metFORMIN HCL ER 500 MG TABCR PO SCH ×2 (09:19→17:56)
[2021-09-11] MEDS: INSULIN ASPART 100 UNITS/ML 3 ML PEN SC SCH ×4 (09:22→20:47)
--- NOTE | 2021-09-11 09:35 | Surgery Progress Note ---
Date of Service September 11, 2021 Assessment & Plan (1) Incarcerated umbilical hernia: Plan: pt is a 56 year-old female who presents to ER with 2 days history abdominal pain, IMP; incarcerated recurrent umbilical hernia, plan, I recommend to do open repair incarcerated umbilical hernia, possible with mesh, or bowel resection, D/W benefits, risks and alternatives of the surgery, the risks - infection, bleeding, injury other organs, hernia recurrence, seroma, complications relate to mesh, [place], DVT, [place], , pt understood, she agrees with surgery, she signed informed consent, I answered all questions, pre-op antibiotic, 09/11/2021 9:33AM F/U S/P open repair incarcerated recurrent umbilical hernia with mesh, POD 1 I update about OR finding and the procedure pt had, pt understood, I answered all questions, pt is doing fine, tolerated diet, no nausea, no vomiting, pt wants to go home today, the post-op care instruction was given, F/U 2 weeks, Admission and Anticipated Discharge Date Admission Date: September 10, 2021 Supervising Physician Co-Signing Physician Notes Patient seen and examined, chart reviewed, case discussed with Dariana Garcia PA-C and I agree with the assessment and plan as above General: NAD. Skin warm and dry HEENT: Atraumatic, normocephalic. Pupils equal and reactive. Visual acuity and hearing grossly intact. Pulm: CTAB A&P. -wheezes, -rales, -rhonchi. Symmetrical chest rise. No increase work of breathing. No respiratory distress. Cardiac: RRR, -mrg. Radial pulses intact and symmetrical. Abdominal: Abd binder in place BS present. All labs and images reviewed T2DM, HTN, Dyslipidemia. Agree with management as above Subjective F/U S/P open repair incarcerated recurrent umbilical hernia with mesh, POD 1 pt is doing fine, mild incision pain, tolerated diet, no nausea, no vomiting, no fever, Review of Systems Constitutional: obesity Eyes: as per Subjective / HPI Respiratory: as per Subjective / HPI Cardiovascular: as per Subjective / HPI Additional Comments: HTN, dyslipidemia Gastrointestinal: umbilical hernai repair with mesh in 2018 Genitourinary: as per Subjective / HPI Neurologic: as per Subjective / HPI Psychiatric: as per Subjective / HPI Endocrine: DM Physical Exam Eyes: PERRL, conjunctivae normal, anicteric sclerae Neck: trachea midline, no thyromegaly Respiratory: normal respiratory effort, lungs clear to auscultation Cardiovascular: RRR, no murmur, no edema Gastrointestinal (Abdomen): soft, mild tenderness at incision site, no rebound pain, the incision intact, no redness, BS + Musculoskeletal: no cyanosis or clubbing, extremities motor strength 5/5 Neurologic: patellar DTR's 2+ bilat, sensation intact Psychiatric: A+Ox3, euthymic affect Results & Data ([facility]) Vital Signs (Past 12 Hours) Vital Signs Temp Pulse Resp BP Pulse Ox 09/11/21 07:27 37.1 C 92 H 16 153/84 H 93 09/11/21 02:55 36.7 C 90 18 118/75 92 09/10/21 22:51 36.9 C 82 16 125/75 95 Laboratory Results Abnormal lab results 09/10/21 09/10/21 09/10/21 Range/Units 12:45 17:11 21:19 RBC (4.2-5.4) M/uL Hgb (12.0-16.0) g/dL Hct (37-47) % Lymph # (Auto) (1.2-3.4) K/uL [place] # (Auto) (0.11-0.59) K/uL Glucose (70-99) mg/dl POC Glucose 131 H 144 H 152 H (70-99) mg/dl AST (15-37) U/L Albumin (3.4-5.0) gm/dl Albumin/Globulin Ratio (0.9-2) 09/11/21 09/11/21 09/11/21 Range/Units 06:16 06:16 08:11 RBC 3.32 L (4.2-5.4) M/uL Hgb 10.9 L (12.0-16.0) g/dL Hct 32.9 L (37-47) % Lymph # (Auto) 0.72 L (1.2-3.4) K/uL [place] # (Auto) 0.74 H (0.11-0.59) K/uL Glucose 146 H (70-99) mg/dl POC Glucose 141 H (70-99) mg/dl AST 11 L (15-37) U/L Albumin 3.0 L (3.4-5.0) gm/dl Albumin/Globulin Ratio 0.8 L (0.9-2)
[2021-09-11] MEDS: ACETAMINOPHEN 325 MG TAB PO PRN ×2 (10:02→17:02)
[2021-09-11] MEDS: ASPIRIN 81 MG ECTAB PO SCH (10:16)
[2021-09-11] MEDS: ATORVASTATIN 10 MG TAB PO SCH (10:17)
[2021-09-11] MEDS: lisinopril 5 MG TAB PO SCH (10:17)
[2021-09-11] MEDS: ENOXAPARIN INJ 40 MG/0.4 ML SYR SQ SCH (10:18)
[2021-09-12] MEDS: metFORMIN HCL ER 500 MG TABCR PO SCH (07:24)
[2021-09-12] MEDS: ASPIRIN 81 MG ECTAB PO SCH (07:24)
[2021-09-12] MEDS: ATORVASTATIN 10 MG TAB PO SCH (07:24)
[2021-09-12] MEDS: lisinopril 5 MG TAB PO SCH (07:25)
[2021-09-12] MEDS: ENOXAPARIN INJ 40 MG/0.4 ML SYR SQ SCH (07:25)
--- NOTE | 2021-09-12 07:34 | Discharge Summary (DS) ---
DATE OF ADMISSION: 09/10/2021. DATE OF DISCHARGE: 09/12/2021 ADMISSION DIAGNOSIS: Incarcerated recurrent umbilical hernia. DISCHARGE DIAGNOSIS: Incarcerated recurrent umbilical hernia. OPERATION: Open repair of incarcerated recurrent umbilical hernia with mesh. SURGEON: Deja Narayanan MD DETAILS OF DISCHARGE SUMMARY: This is a 56-year-old female who presented to ED with a 2-day history of abdominal pain and the patient had a CT scan diagnosis of incarcerated recurrent umbilical hernia. We took the patient to the OR, we did the open repair of incarcerated recurrent umbilical hernia with mesh. The patient tolerated the procedure well and after procedure, the patient was transferred to the Recovery Room in stable condition and then later on transferred to regular floor. The patient is doing fine, tolerates a diet. No nausea, no vomiting. Good control of the pain for incision pain. PHYSICAL EXAMINATION: VITAL SIGNS: Temperature is 36.6, respiratory rate 16, heart rate 80, blood pressure 121/80, O2 saturation 9% on room air. GENERAL: The patient is alert, awake, oriented x3. HEENT: Within normal limitation. NEUROLOGIC: Exam intact. NECK: No JVD. CHEST: Bilateral lung sounds clear. HEART: Normal S1 and S2. No murmur. ABDOMEN: Soft, mild tenderness on the incision site. No rebound pain, no distention. The incision is intact and no redness. Bowel sounds positive. EXTREMITIES: No edema. The patient wanted to go home today. We gave the patient postop care instruction, the patient understands. I will follow up with the patient in 2 weeks. Job ID: [id number] [facility]
[2021-09-12] MEDS: INSULIN ASPART 100 UNITS/ML 3 ML PEN SC SCH ×2 (09:02→13:33)
--- NOTE | 2021-09-12 09:53 | Surgery Progress Note ---
Date of Service September 12, 2021 Assessment & Plan (1) Incarcerated umbilical hernia: Plan: POD # 2 s/p open umbilical and periumbilical hernia repair with mesh, mesh measures 11 x 13 cm -afebrile, vitals stable - postop pain better controlled today - no n/v Plan: Patient would like to go home today, pain better controlled dressing changed as it was falling off discharge instructions reviewed with patient previously and no new questions will order larger abdominal binder if available follow-up surgical office in 2 weeks Admission and Anticipated Discharge Date Admission Date: September 10, 2021 Subjective feeling better today pain is better controlled no nausea or vomiting tolerating full liquids ambulating and urinating without difficulty. Physical Exam Constitutional: WD/WN, vitals as above + morbidly obese; no acute distress and not ill appearing Respiratory: normal respiratory effort; no respiratory distress, no labored breathing and no retractions Gastrointestinal (Abdomen): Inspection/Auscultation: abdomen normal to inspection and + abdominal surgical incision (transverse infraumbilical incision with alvaro intact, no drainage); abdomen not distended Percussion/Palpation: + abdomen tender (at and surrounding incision site, appropriate postop) and abdomen soft; no guarding and abdomen not rigid Skin: no rashes, warm and dry Psychiatric: Orientation: alert and oriented x 3 Results & Data ([facility]) Vital Signs (Past 12 Hours) Vital Signs Temp Pulse Pulse Resp BP Pulse Ox 09/12/21 07:37 36.6 C 80 16 121/80 94 09/11/21 23:14 36.8 C 81 18 111/70 93
--- NOTE | 2021-09-12 11:03 | Surgery Progress Note ---
Date of Service September 12, 2021 Assessment & Plan (1) Incarcerated umbilical hernia: Plan: POD # 2 s/p open umbilical and periumbilical hernia repair with mesh, mesh measures 11 x 13 cm -afebrile, vitals stable - postop pain better controlled today - no n/v Plan: Patient would like to go home today, pain better controlled dressing changed as it was falling off discharge instructions reviewed with patient previously and no new questions will order larger abdominal binder if available follow-up surgical office in 2 weeks Admission and Anticipated Discharge Date Admission Date: September 10, 2021 Supervising Physician Co-Signing Physician Notes Patient seen and examined, chart reviewed, case discussed with Dariana Garcia PA-C and I agree with the assessment and plan as above General: NAD. Skin warm and dry HEENT: Atraumatic, normocephalic. Pupils equal and reactive. Visual acuity and hearing grossly intact. Pulm: CTAB A&P. -wheezes, -rales, -rhonchi. Symmetrical chest rise. No increase work of breathing. No respiratory distress. Cardiac: RRR, -mrg. Radial pulses intact and symmetrical. Abdominal: Abd binder in place BS present. All labs and images reviewed T2DM, HTN, Dyslipidemia. Agree with management as above Subjective feeling better today pain is better controlled no nausea or vomiting tolerating full liquids ambulating and urinating without difficulty. Review of Systems Constitutional: obesity Eyes: as per Subjective / HPI Respiratory: as per Subjective / HPI Cardiovascular: as per Subjective / HPI Additional Comments: HTN, dyslipidemia Gastrointestinal: umbilical hernai repair with mesh in 2018 Genitourinary: as per Subjective / HPI Neurologic: as per Subjective / HPI Psychiatric: as per Subjective / HPI Endocrine: DM Physical Exam Eyes: PERRL, conjunctivae normal, anicteric sclerae Neck: trachea midline, no thyromegaly Respiratory: normal respiratory effort, lungs clear to auscultation Cardiovascular: RRR, no murmur, no edema Musculoskeletal: no cyanosis or clubbing, extremities motor strength 5/5 Neurologic: patellar DTR's 2+ bilat, sensation intact Psychiatric: A+Ox3, euthymic affect Results & Data ([facility]) Vital Signs (Past 12 Hours) Vital Signs Temp Pulse Pulse Resp BP Pulse Ox 09/12/21 07:37 36.6 C 80 16 121/80 94 09/11/21 23:14 36.8 C 81 18 111/70 93
== END 2021-09-12 15:34 | disposition home or self-care (01) ==
LOC: ED 04:11 → 3N 08:07 → ASU 08:07 → 3N 08:08